=== PATIENT | female | born 1945 | race Caucasian/White ===

== ENCOUNTER 2017-11-09 12:50 | Emergency (ER) | payer OTHER ==
[2017-11-09 14:04] LABS: BASO # 0.1 10^3/uL (0.0-0.2); BASO % 0.5 % (0.0-1.0); EOS # 0.1 10^3/uL (0.0-0.50); EOS % 0.9 % (0.0-3.0); HEMOGLOBIN 10.3 g/dl (12.0-16.0); IMMATURE GRANULOCYTE # 0.1 10^3/uL (0-0); IMMATURE GRANULOCYTE % 0.5 % (0-0); LYMPH # 1.3 10^3/uL (1.5-4.5); LYMPH % 11.9 % (24.0-44.0); MEAN CORPUSCULAR HEMOGLOBIN 24.8 pg (27.0-33.0); MEAN CORPUSCULAR HGB CONC 30.3 g/dl (32.0-36.5); MEAN CORPUSCULAR VOLUME 81.9 fl (80.0-96.0); MONO # 0.6 10^3/uL (0.0-0.8); MONO % 5.8 % (0.0-5.0); NEUTROPHILS # 8.8 10^3/uL (1.8-7.7); NEUTROPHILS % 80.4 % (36.0-66.0); PLATELET COUNT, AUTOMATED 328 10^3/uL (150-450); RED BLOOD COUNT 4.15 10^6/uL (4.00-5.40); RED CELL DISTRIBUTION WIDTH 15.8 % (11.5-14.5)
[2017-11-09 14:15] LABS: INR 1.22; PARTIAL THROMBOPLASTIN TIME 33.9 SECONDS (26.8-37.9); PROTHROMBIN TIME 15.6 SECONDS (12.4-14.5)
== END 2017-11-09 15:20 | disposition home or self-care (01) ==
LOC: M ED 12:50
DX: N93.8 Other specified abnormal uterine and vaginal bleeding (principal); R93.8 Abnormal findings on diagnostic imaging of other specified body structures; I25.10 Atherosclerotic heart disease of native coronary artery without angina pectoris; I48.91 Unspecified atrial fibrillation; D64.9 Anemia, unspecified; G43.909 Migraine, unspecified, not intractable, without status migrainosus; N18.6 End stage renal disease; E03.9 Hypothyroidism, unspecified; E66.9 Obesity, unspecified; Z79.899 Other long term (current) drug therapy; Z79.01 Long term (current) use of anticoagulants; Z79.4 Long term (current) use of insulin; Z79.890 Hormone replacement therapy; Z88.5 Allergy status to narcotic agent; Z88.8 Allergy status to other drugs, medicaments and biological substances
CPT/HCPCS: 76856

== ENCOUNTER → 2018-01-26 | Outpatient (REF) | payer OTHER ==
[2018-01-26 14:28] LABS: FERRITIN 10 NG/ML (8-252); IRON (FE) 23 UG/DL (50-170); PERCENT SATURATION 5.5 % (13.2-45.0); TOTAL IRON BINDING CAPACITY 420 UG/DL (250-450)
== END ==
LOC: M LAB REF 13:24
DX: D50.9 Iron deficiency anemia, unspecified (principal)
CPT/HCPCS: 83550

== ENCOUNTER 2018-06-08 11:34 | Outpatient (CLI) | payer OTHER | END 2018-06-08 17:50 | disposition home or self-care (01) | LOC: M OPCLI4 11:34 → M PED 11:54 → M OPCLI4 17:50 | DX: D62 Acute posthemorrhagic anemia (principal); N18.9 Chronic kidney disease, unspecified; E11.22 Type 2 diabetes mellitus with diabetic chronic kidney disease; I11.0 Hypertensive heart disease with heart failure; E66.9 Obesity, unspecified; E03.9 Hypothyroidism, unspecified; E78.5 Hyperlipidemia, unspecified; I50.32 Chronic diastolic (congestive) heart failure; I25.10 Atherosclerotic heart disease of native coronary artery without angina pectoris; G47.30 Sleep apnea, unspecified; I48.91 Unspecified atrial fibrillation; I35.2 Nonrheumatic aortic (valve) stenosis with insufficiency; E21.3 Hyperparathyroidism, unspecified; Z80.8 Family history of malignant neoplasm of other organs or systems; Z88.5 Allergy status to narcotic agent; Z88.8 Allergy status to other drugs, medicaments and biological substances; Z79.4 Long term (current) use of insulin; Z79.899 Other long term (current) drug therapy | CPT/HCPCS: 36430 ==

== ENCOUNTER → 2018-06-21 | Outpatient (CLI) | payer OTHER | LOC: M RAD 13:54 | DX: N83.209 Unspecified ovarian cyst, unspecified side (principal) | CPT/HCPCS: 76856 ==

== ENCOUNTER 2018-06-30 06:01 | Day surgery (SDC) | payer OTHER ==
[~2018-06-30 06:01] MED LIST: LR 1,000 ML IV
[2018-06-30 06:37] LABS: HEMATOCRIT 31.6 % (36.0-47.0); HEMOGLOBIN 9.3 g/dl (12.0-15.5); MEAN CORPUSCULAR HEMOGLOBIN 24.1 pg (27.0-33.0); MEAN CORPUSCULAR HGB CONC 29.4 g/dl (32.0-36.5); MEAN CORPUSCULAR VOLUME 81.9 fl (80.0-96.0); PLATELET COUNT, AUTOMATED 361 10^3/uL (150-450); RED BLOOD COUNT 3.86 10^6/uL (4.00-5.40); RED CELL DISTRIBUTION WIDTH 16.3 % (11.5-14.5); WHITE BLOOD COUNT 14.8 10^3/uL (4.0-10.0)
[2018-06-30 06:57] LABS: BEDSIDE GLUCOSE 103 MG/DL (83-110)
[2018-06-30] MEDS ORDERED: dexameTHASONE 4 MG/ML 1ML VIAL (J1100) As Ordered (07:16)
[2018-06-30] MEDS ORDERED: fentaNYL 100 MCG/2 ML INJECTION (J3010) As Ordered (07:16)
[2018-06-30] MEDS ORDERED: ONDANSETRON 4MG/2ML VIAL (J2405) As Ordered (07:16)
[2018-06-30] MEDS ORDERED: MIDAZOLAM INJ 2 MG/2 ML VIAL (J2250) As Ordered (07:16)
[2018-06-30] MEDS ORDERED: LIDOCAINE 2% INJ 100 MG/5 ML SDV (FOR ANES.) As Ordered (07:16)
[2018-06-30] MEDS ORDERED: PROPOFOL 200 MG/20 ML VIAL As Ordered (07:16)
[2018-06-30] MEDS ORDERED: ROCURONIUM BROMIDE 50 MG/5 ML VIAL As Ordered (08:03)
[2018-06-30] MEDS ORDERED: ePHEDrine SULFATE 25 MG/5 ML(5MG/ML) SYRINGE As Ordered (08:03)
[2018-06-30] MEDS: SILVER NITRATE APPLICATOR As Ordered (08:20)
[2018-06-30 08:50] LABS: BEDSIDE GLUCOSE 120 MG/DL (83-110)
[2018-06-30] MEDS ORDERED: ONDANSETRON 4MG/2ML VIAL (J2405) IV (09:00)
[2018-06-30] MEDS ORDERED: fentaNYL 100 MCG/2 ML INJECTION (J3010) IV (09:00)
[2018-06-30] MEDS ORDERED: LR 1,000 ML IV (09:00)
== END 2018-06-30 10:57 | disposition home or self-care (01) ==
LOC: M SDC 06:01
DX: C54.1 Malignant neoplasm of endometrium (principal); I48.91 Unspecified atrial fibrillation; I10 Essential (primary) hypertension; E78.5 Hyperlipidemia, unspecified; E11.9 Type 2 diabetes mellitus without complications; G47.30 Sleep apnea, unspecified; Z79.02 Long term (current) use of antithrombotics/antiplatelets; Z79.4 Long term (current) use of insulin; E03.9 Hypothyroidism, unspecified; D64.9 Anemia, unspecified; F41.9 Anxiety disorder, unspecified; Z79.899 Other long term (current) drug therapy; N18.9 Chronic kidney disease, unspecified
CPT/HCPCS: 58558

== ENCOUNTER 2018-10-23 16:16 | Inpatient (IN) | payer OTHER ==
[2018-10-23 16:57] LABS: HEMATOCRIT 22.5 % (36.0-47.0); MEAN CORPUSCULAR HEMOGLOBIN 24.7 pg (27.0-33.0); MEAN CORPUSCULAR HGB CONC 30.7 g/dl (32.0-36.5); MEAN CORPUSCULAR VOLUME 80.6 fl (80.0-96.0); PLATELET COUNT, AUTOMATED 283 10^3/uL (150-450); RED BLOOD COUNT 2.79 10^6/uL (4.00-5.40); RED CELL DISTRIBUTION WIDTH 19.9 % (11.5-14.5); WHITE BLOOD COUNT 19.3 10^3/uL (4.0-10.0)
[2018-10-23] MEDS: NS 1,000 ML IV (17:00)
[2018-10-23 17:03] LABS: HEMOGLOBIN 6.9 g/dl (12.0-15.5)
[2018-10-23 17:04] LABS: ALBUMIN 3.2 GM/DL (3.2-5.2); ALKALINE PHOSPHATASE 74 U/L (45-117); ALT/SGPT 19 U/L (12-78); ANION GAP 17 MEQ/L (8-16); AST/SGOT 16 U/L (7-37); BILIRUBIN,TOTAL 0.7 MG/DL (0.2-1.0); BLOOD UREA NITROGEN 84 MG/DL (7-18); CALCIUM LEVEL 8.3 MG/DL (8.8-10.2); CARBON DIOXIDE LEVEL 21 MEQ/L (21-32); CHLORIDE LEVEL 102 MEQ/L (98-107); CREATININE FOR GFR 3.44 MG/DL (0.55-1.30); GLOMERULAR FILTRATION RATE 13.8 (>39); GLUCOSE, FASTING 220 MG/DL (70-100); POTASSIUM SERUM 4.7 MEQ/L (3.5-5.1); SODIUM LEVEL 140 MEQ/L (136-145); TOTAL PROTEIN 6.4 GM/DL (6.4-8.2)
[2018-10-23 17:16] LABS: INR 1.19; PARTIAL THROMBOPLASTIN TIME 23.8 SECONDS (25.4-37.6); PROTHROMBIN TIME 15.3 SECONDS (12.1-14.4)
[2018-10-23 18:03] LABS: IMMEDIATE SPIN CROSSMATCH 1 2
[2018-10-23] MEDS ORDERED: ACETAMINOPHEN TAB 650MG DOSE (2X325MG) PO (19:15)
[2018-10-23 19:20] LABS: CHLAMYDIA DNA AMPLIFICATION NEGATIVE (NEGATIVE); GC DNA AMPLIFICATION NEGATIVE (NEGATIVE)
[2018-10-23] MEDS ORDERED: GLUCAGON FOR INJ 1 MG VIAL (J1610) SC (20:30)
[2018-10-23] MEDS ORDERED: DEXTROSE 50% 50 ML SYRINGE IV (20:30)
[2018-10-23] MEDS ORDERED: GLUCOSE 4 GM CHEW TABLET PO (20:30)
[2018-10-23] MEDS: HumaLOG INSULIN (NovoLOG) PER UNIT SC (21:00)
[2018-10-23] MEDS: ONDANSETRON 4MG/2ML VIAL (J2405) IV (21:52)
[2018-10-23] MEDS: METOPROLOL SUCC *XL* 25MG TAB (TopROL *XL*) PO (22:42)
[2018-10-23] MEDS: SIMVASTATIN 20 MG TAB PO (22:42)
[2018-10-23] MEDS: FEBUXOSTAT 40 MG TABLET (ULORIC) PO (23:08)
[2018-10-24 00:09] LABS: BEDSIDE GLUCOSE 206 MG/DL (83-110)
[2018-10-24 00:49] LABS: HEMATOCRIT 28.3 % (36.0-47.0); MEAN CORPUSCULAR HEMOGLOBIN 26.3 pg (27.0-33.0); MEAN CORPUSCULAR HGB CONC 32.2 g/dl (32.0-36.5); MEAN CORPUSCULAR VOLUME 81.8 fl (80.0-96.0); PLATELET COUNT, AUTOMATED 221 10^3/uL (150-450); RED BLOOD COUNT 3.46 10^6/uL (4.00-5.40); RED CELL DISTRIBUTION WIDTH 17.8 % (11.5-14.5); WHITE BLOOD COUNT 18.5 10^3/uL (4.0-10.0)
[2018-10-24 00:55] LABS: HEMOGLOBIN 9.1 g/dl (12.0-15.5)
[2018-10-24 05:02] LABS: HEMATOCRIT 25.9 % (36.0-47.0); HEMOGLOBIN 8.4 g/dl (12.0-15.5); MEAN CORPUSCULAR HEMOGLOBIN 25.9 pg (27.0-33.0); MEAN CORPUSCULAR HGB CONC 32.4 g/dl (32.0-36.5); MEAN CORPUSCULAR VOLUME 79.9 fl (80.0-96.0); PLATELET COUNT, AUTOMATED 252 10^3/uL (150-450); RED BLOOD COUNT 3.24 10^6/uL (4.00-5.40); RED CELL DISTRIBUTION WIDTH 17.6 % (11.5-14.5); WHITE BLOOD COUNT 19.8 10^3/uL (4.0-10.0)
[2018-10-24 05:22] LABS: ANION GAP 11 MEQ/L (8-16); BLOOD UREA NITROGEN 86 MG/DL (7-18); CARBON DIOXIDE LEVEL 25 MEQ/L (21-32); CHLORIDE LEVEL 104 MEQ/L (98-107); CREATININE FOR GFR 3.51 MG/DL (0.55-1.30); GLOMERULAR FILTRATION RATE 13.5 (>39); GLUCOSE, FASTING 204 MG/DL (70-100); MAGNESIUM LEVEL 1.8 MG/DL (1.8-2.4); SODIUM LEVEL 140 MEQ/L (136-145)
[2018-10-24] MEDS: LEVOTHYROXINE 125MCG TABLET (0.125MG) PO (06:22)
[2018-10-24] MEDS: ONDANSETRON 4MG/2ML VIAL (J2405) IV (08:43)
[2018-10-24] MEDS: HumaLOG INSULIN (NovoLOG) PER UNIT SC ×4 (08:48→20:37)
[2018-10-24 11:32] LABS: BEDSIDE GLUCOSE 250 MG/DL (83-110)
[2018-10-24] MEDS: NS 1,000 ML IV (12:15)
[2018-10-24 12:30] LABS: HEMATOCRIT 22.7 % (36.0-47.0); HEMOGLOBIN 7.5 g/dl (12.0-15.5); MEAN CORPUSCULAR HEMOGLOBIN 26.2 pg (27.0-33.0); MEAN CORPUSCULAR VOLUME 79.4 fl (80.0-96.0); PLATELET COUNT, AUTOMATED 248 10^3/uL (150-450); RED BLOOD COUNT 2.86 10^6/uL (4.00-5.40); WHITE BLOOD COUNT 21.3 10^3/uL (4.0-10.0)
[2018-10-24 15:34] LABS: IMMEDIATE SPIN CROSSMATCH 1 2
[2018-10-24 17:32] LABS: BEDSIDE GLUCOSE 192 MG/DL (83-110)
[2018-10-24] MEDS: MEGESTROL 40 MG TAB PO (18:15)
[2018-10-24 19:41] LABS: HEMOGLOBIN 9.5 g/dl (12.0-15.5); MEAN CORPUSCULAR HEMOGLOBIN 27.3 pg (27.0-33.0); MEAN CORPUSCULAR HGB CONC 32.8 g/dl (32.0-36.5); MEAN CORPUSCULAR VOLUME 83.3 fl (80.0-96.0); PLATELET COUNT, AUTOMATED 213 10^3/uL (150-450); RED BLOOD COUNT 3.48 10^6/uL (4.00-5.40); RED CELL DISTRIBUTION WIDTH 16.7 % (11.5-14.5); WHITE BLOOD COUNT 22.3 10^3/uL (4.0-10.0)
[2018-10-24] MEDS: SIMVASTATIN 20 MG TAB PO (20:36)
[2018-10-24] MEDS: FEBUXOSTAT 40 MG TABLET (ULORIC) PO (20:36)
[2018-10-24] MEDS: METOPROLOL SUCC *XL* 25MG TAB (TopROL *XL*) PO (20:37)
[2018-10-24 20:44] LABS: BEDSIDE GLUCOSE 205 MG/DL (83-110)
[2018-10-24 22:59] LABS: MEAN CORPUSCULAR HEMOGLOBIN 26.9 pg (27.0-33.0); MEAN CORPUSCULAR HGB CONC 32.1 g/dl (32.0-36.5); MEAN CORPUSCULAR VOLUME 83.6 fl (80.0-96.0); PLATELET COUNT, AUTOMATED 225 10^3/uL (150-450); RED BLOOD COUNT 3.35 10^6/uL (4.00-5.40); RED CELL DISTRIBUTION WIDTH 16.7 % (11.5-14.5); WHITE BLOOD COUNT 25.1 10^3/uL (4.0-10.0)
[2018-10-25] MEDS: LEVOTHYROXINE 125MCG TABLET (0.125MG) PO (05:09)
[2018-10-25] MEDS: ONDANSETRON 4MG/2ML VIAL (J2405) IV (06:35)
[2018-10-25 06:44] LABS: HEMATOCRIT 24.6 % (36.0-47.0); HEMOGLOBIN 8.1 g/dl (12.0-15.5); MEAN CORPUSCULAR HEMOGLOBIN 27.7 pg (27.0-33.0); MEAN CORPUSCULAR HGB CONC 32.9 g/dl (32.0-36.5); MEAN CORPUSCULAR VOLUME 84.2 fl (80.0-96.0); PLATELET COUNT, AUTOMATED 217 10^3/uL (150-450); RED BLOOD COUNT 2.92 10^6/uL (4.00-5.40); WHITE BLOOD COUNT 24.3 10^3/uL (4.0-10.0)
[2018-10-25 07:04] LABS: ANION GAP 10 MEQ/L (8-16); BLOOD UREA NITROGEN 89 MG/DL (7-18); CALCIUM LEVEL 7.8 MG/DL (8.8-10.2); CARBON DIOXIDE LEVEL 23 MEQ/L (21-32); CHLORIDE LEVEL 102 MEQ/L (98-107); CREATININE FOR GFR 3.66 MG/DL (0.55-1.30); GLOMERULAR FILTRATION RATE 12.9 (>39); GLUCOSE, FASTING 202 MG/DL (70-100); MAGNESIUM LEVEL 1.9 MG/DL (1.8-2.4); POTASSIUM SERUM 4.9 MEQ/L (3.5-5.1); SODIUM LEVEL 135 MEQ/L (136-145)
[2018-10-25] MEDS: NS 1,000 ML IV (08:52)
[2018-10-25] MEDS: HumaLOG INSULIN (NovoLOG) PER UNIT SC ×4 (08:53→20:55)
[2018-10-25] MEDS: MEGESTROL 40 MG TAB PO ×2 (08:54→20:55)
[2018-10-25 12:11] LABS: BEDSIDE GLUCOSE 244 MG/DL (83-110)
[2018-10-25 12:37] LABS: FERRITIN 24 NG/ML (8-252); IRON (FE) 21 UG/DL (50-170); PERCENT SATURATION 5.6 % (13.2-45.0); TOTAL IRON BINDING CAPACITY 373 UG/DL (250-450)
[2018-10-25 13:49] LABS: REASON FOR REVIEW WBC/LEUKEMIA/BLAST; SLIDE REVIEW Report; SOURCE PERIPHERAL SMEAR
[2018-10-25] MEDS: NYSTATIN 100,000 UNITS/GM TOPICAL PWD 15 GM TOP ×2 (16:48→20:55)
[2018-10-25 17:01] LABS: BEDSIDE GLUCOSE 239 MG/DL (83-110)
[2018-10-25 17:10] LABS: BASO % 0.1 % (0.0-1.0); HEMATOCRIT 19.8 % (36.0-47.0); LYMPH # 2.4 10^3/uL (1.5-4.5); LYMPH % 9.5 % (24.0-44.0); MEAN CORPUSCULAR HEMOGLOBIN 27.7 pg (27.0-33.0); MEAN CORPUSCULAR HGB CONC 33.3 g/dl (32.0-36.5); MEAN CORPUSCULAR VOLUME 83.2 fl (80.0-96.0); MONO # 1.7 10^3/uL (0.0-0.8); MONO % 6.9 % (0.0-5.0); NEUTROPHILS # 20.7 10^3/uL (1.8-7.7); NEUTROPHILS % 82.5 % (36.0-66.0); PLATELET COUNT, AUTOMATED 218 10^3/uL (150-450); RED BLOOD COUNT 2.38 10^6/uL (4.00-5.40); RED CELL DISTRIBUTION WIDTH 16.9 % (11.5-14.5)
[2018-10-25 17:16] LABS: HEMOGLOBIN 6.6 g/dl (12.0-15.5)
[2018-10-25 19:48] LABS: IMMEDIATE SPIN CROSSMATCH 1 2
[2018-10-25] MEDS: METOPROLOL SUCC *XL* 25MG TAB (TopROL *XL*) PO (20:55)
[2018-10-25] MEDS: SIMVASTATIN 20 MG TAB PO (20:55)
[2018-10-25] MEDS: FEBUXOSTAT 40 MG TABLET (ULORIC) PO (20:55)
[2018-10-25 20:57] LABS: BEDSIDE GLUCOSE 207 MG/DL (83-110)
[2018-10-26 03:28] LABS: HEMOGLOBIN 8.7 g/dl (12.0-15.5)
[2018-10-26] MEDS: LEVOTHYROXINE 125MCG TABLET (0.125MG) PO (06:06)
[2018-10-26 06:34] LABS: HEMATOCRIT 26.1 % (36.0-47.0); HEMOGLOBIN 8.8 g/dl (12.0-15.5); MEAN CORPUSCULAR HEMOGLOBIN 28.4 pg (27.0-33.0); MEAN CORPUSCULAR HGB CONC 33.7 g/dl (32.0-36.5); MEAN CORPUSCULAR VOLUME 84.2 fl (80.0-96.0); PLATELET COUNT, AUTOMATED 179 10^3/uL (150-450); RED CELL DISTRIBUTION WIDTH 15.3 % (11.5-14.5); WHITE BLOOD COUNT 20.7 10^3/uL (4.0-10.0)
[2018-10-26 06:58] LABS: ANION GAP 10 MEQ/L (8-16); BLOOD UREA NITROGEN 88 MG/DL (7-18); CALCIUM LEVEL 7.7 MG/DL (8.8-10.2); CARBON DIOXIDE LEVEL 24 MEQ/L (21-32); CHLORIDE LEVEL 102 MEQ/L (98-107); CREATININE FOR GFR 3.36 MG/DL (0.55-1.30); GLOMERULAR FILTRATION RATE 14.2 (>39); GLUCOSE, FASTING 160 MG/DL (70-100); POTASSIUM SERUM 4.1 MEQ/L (3.5-5.1); SODIUM LEVEL 136 MEQ/L (136-145)
[2018-10-26] MEDS: MEGESTROL 40 MG TAB PO ×2 (08:06→20:45)
[2018-10-26] MEDS: HumaLOG INSULIN (NovoLOG) PER UNIT SC ×4 (08:07→20:44)
[2018-10-26] MEDS: NYSTATIN 100,000 UNITS/GM TOPICAL PWD 15 GM TOP ×2 (08:07→20:44)
[2018-10-26 11:31] LABS: BEDSIDE GLUCOSE 179 MG/DL (83-110)
[2018-10-26] MEDS ORDERED: IRON SUCROSE 100MG 5ML VIAL (J1756 PER 1MG) IV (12:00)
[2018-10-26] MEDS: SODIUM CHLORIDE 0.9% INJ 10 ML SYR IV ×2 (14:00→20:43)
[2018-10-26] MEDS: IRON SUCROSE 25 MG in NS 50 ML IV (14:10)
[2018-10-26 14:19] LABS: HEMATOCRIT 25.4 % (36.0-47.0); HEMOGLOBIN 8.7 g/dl (12.0-15.5); MEAN CORPUSCULAR HEMOGLOBIN 29.1 pg (27.0-33.0); MEAN CORPUSCULAR HGB CONC 34.3 g/dl (32.0-36.5); MEAN CORPUSCULAR VOLUME 84.9 fl (80.0-96.0); PLATELET COUNT, AUTOMATED 191 10^3/uL (150-450); RED BLOOD COUNT 2.99 10^6/uL (4.00-5.40); RED CELL DISTRIBUTION WIDTH 15.4 % (11.5-14.5); WHITE BLOOD COUNT 19.7 10^3/uL (4.0-10.0)
[2018-10-26] MEDS: IRON SUCROSE 275 MG in NS 250 ML IV (15:37)
[2018-10-26 17:09] LABS: BEDSIDE GLUCOSE 235 MG/DL (83-110)
[2018-10-26 20:39] LABS: BEDSIDE GLUCOSE 237 MG/DL (83-110)
[2018-10-26] MEDS: METOPROLOL SUCC *XL* 25MG TAB (TopROL *XL*) PO (20:44)
[2018-10-26] MEDS: FEBUXOSTAT 40 MG TABLET (ULORIC) PO (20:45)
[2018-10-26] MEDS: SIMVASTATIN 20 MG TAB PO (20:45)
[2018-10-26 22:33] LABS: BEDSIDE GLUCOSE 240 MG/DL (83-110)
[2018-10-27] MEDS: SODIUM CHLORIDE 0.9% INJ 10 ML SYR IV ×4 (06:12→20:18)
[2018-10-27] MEDS: LEVOTHYROXINE 125MCG TABLET (0.125MG) PO (06:13)
[2018-10-27 06:37] LABS: BASO % 0.2 % (0.0-1.0); EOS # 0.2 10^3/uL (0.0-0.50); HEMATOCRIT 23.9 % (36.0-47.0); LYMPH # 1.9 10^3/uL (1.5-4.5); LYMPH % 11.6 % (24.0-44.0); MEAN CORPUSCULAR HEMOGLOBIN 28.8 pg (27.0-33.0); MEAN CORPUSCULAR HGB CONC 33.5 g/dl (32.0-36.5); MONO # 1.5 10^3/uL (0.0-0.8); MONO % 9.2 % (0.0-5.0); NEUTROPHILS # 12.9 10^3/uL (1.8-7.7); PLATELET COUNT, AUTOMATED 178 10^3/uL (150-450); RED BLOOD COUNT 2.78 10^6/uL (4.00-5.40); WHITE BLOOD COUNT 16.7 10^3/uL (4.0-10.0)
[2018-10-27 06:54] LABS: ANION GAP 11 MEQ/L (8-16); BLOOD UREA NITROGEN 67 MG/DL (7-18); CALCIUM LEVEL 7.6 MG/DL (8.8-10.2); CARBON DIOXIDE LEVEL 24 MEQ/L (21-32); CHLORIDE LEVEL 104 MEQ/L (98-107); CREATININE FOR GFR 2.63 MG/DL (0.55-1.30); GLOMERULAR FILTRATION RATE 18.9 (>39); GLUCOSE, FASTING 162 MG/DL (70-100); MAGNESIUM LEVEL 1.9 MG/DL (1.8-2.4); POTASSIUM SERUM 3.8 MEQ/L (3.5-5.1); SODIUM LEVEL 139 MEQ/L (136-145)
[2018-10-27] MEDS: HumaLOG INSULIN (NovoLOG) PER UNIT SC ×4 (08:35→20:15)
[2018-10-27] MEDS: MEGESTROL 40 MG TAB PO ×2 (08:35→20:15)
[2018-10-27] MEDS: NYSTATIN 100,000 UNITS/GM TOPICAL PWD 15 GM TOP ×2 (08:36→20:16)
[2018-10-27 11:31] LABS: IMMEDIATE SPIN CROSSMATCH 1 1
[2018-10-27 11:45] LABS: BEDSIDE GLUCOSE 189 MG/DL (83-110)
[2018-10-27 16:55] LABS: BEDSIDE GLUCOSE 242 MG/DL (83-110)
[2018-10-27 18:35] LABS: BASO % 0.2 % (0.0-1.0); EOS # 0.1 10^3/uL (0.0-0.50); EOS % 0.8 % (0.0-3.0); HEMATOCRIT 27.5 % (36.0-47.0); HEMOGLOBIN 9.2 g/dl (12.0-15.5); IMMATURE GRANULOCYTE % 0.9 % (0-3.0); LYMPH # 1.7 10^3/uL (1.5-4.5); LYMPH % 10.7 % (24.0-44.0); MEAN CORPUSCULAR HEMOGLOBIN 28.8 pg (27.0-33.0); MEAN CORPUSCULAR HGB CONC 33.5 g/dl (32.0-36.5); MEAN CORPUSCULAR VOLUME 85.9 fl (80.0-96.0); MONO # 1.5 10^3/uL (0.0-0.8); MONO % 9.2 % (0.0-5.0); NEUTROPHILS # 12.4 10^3/uL (1.8-7.7); NEUTROPHILS % 78.2 % (36.0-66.0); PLATELET COUNT, AUTOMATED 189 10^3/uL (150-450); RED CELL DISTRIBUTION WIDTH 15.9 % (11.5-14.5); WHITE BLOOD COUNT 15.9 10^3/uL (4.0-10.0)
[2018-10-27] MEDS: SIMVASTATIN 20 MG TAB PO (20:14)
[2018-10-27] MEDS: METOPROLOL SUCC *XL* 25MG TAB (TopROL *XL*) PO (20:14)
[2018-10-27] MEDS: FEBUXOSTAT 40 MG TABLET (ULORIC) PO (20:15)
[2018-10-27 20:21] LABS: BEDSIDE GLUCOSE 190 MG/DL (83-110)
[2018-10-27] MEDS: LEVEMIR (INSULIN DETEMIR) 1 UNITS/0.01ML SC (22:03)
[2018-10-28] MEDS: APIXABAN 5 MG TAB (ELIQUIS) PO ×2 (01:06→11:11)
[2018-10-28] MEDS: LEVOTHYROXINE 125MCG TABLET (0.125MG) PO (06:08)
[2018-10-28] MEDS: SODIUM CHLORIDE 0.9% INJ 10 ML SYR IV ×3 (06:08→14:00)
[2018-10-28 07:02] LABS: ANION GAP 9 MEQ/L (8-16); BLOOD UREA NITROGEN 52 MG/DL (7-18); CALCIUM LEVEL 7.2 MG/DL (8.8-10.2); CARBON DIOXIDE LEVEL 25 MEQ/L (21-32); CHLORIDE LEVEL 107 MEQ/L (98-107); CREATININE FOR GFR 2.09 MG/DL (0.55-1.30); GLOMERULAR FILTRATION RATE 24.6 (>39); GLUCOSE, FASTING 114 MG/DL (70-100); MAGNESIUM LEVEL 1.7 MG/DL (1.8-2.4); POTASSIUM SERUM 3.9 MEQ/L (3.5-5.1); SODIUM LEVEL 141 MEQ/L (136-145)
[2018-10-28 08:43] LABS: BASO # 0.1 10^3/uL (0.0-0.2); BASO % 0.3 % (0.0-1.0); EOS # 0.4 10^3/uL (0.0-0.50); EOS % 2.3 % (0.0-3.0); HEMATOCRIT 27.3 % (36.0-47.0); IMMATURE GRANULOCYTE % 0.8 % (0-3.0); LYMPH # 2.3 10^3/uL (1.5-4.5); LYMPH % 13.8 % (24.0-44.0); MEAN CORPUSCULAR HEMOGLOBIN 28.8 pg (27.0-33.0); MEAN CORPUSCULAR VOLUME 87.2 fl (80.0-96.0); MONO # 1.4 10^3/uL (0.0-0.8); MONO % 8.5 % (0.0-5.0); NEUTROPHILS # 12.5 10^3/uL (1.8-7.7); NEUTROPHILS % 74.3 % (36.0-66.0); PLATELET COUNT, AUTOMATED 199 10^3/uL (150-450); RED BLOOD COUNT 3.13 10^6/uL (4.00-5.40); RED CELL DISTRIBUTION WIDTH 16.6 % (11.5-14.5); WHITE BLOOD COUNT 16.8 10^3/uL (4.0-10.0)
[2018-10-28] MEDS: MEGESTROL 40 MG TAB PO (10:35)
[2018-10-28] MEDS: NYSTATIN 100,000 UNITS/GM TOPICAL PWD 15 GM TOP (10:36)
[2018-10-28] MEDS: MAG SULF 1GM/100ML (MAG RUN) 1 GM in APPROPRIATE DILUENT 1 EA IV (10:37)
[2018-10-28] MEDS: HumaLOG INSULIN (NovoLOG) PER UNIT SC ×2 (10:48→12:52)
[2018-10-28 11:58] LABS: BEDSIDE GLUCOSE 170 MG/DL (83-110)
== END 2018-10-28 17:28 | disposition home or self-care (01) | DRG 812 ==
LOC: M MSPAV 10-26 21:00 → M ED 16:16 → M ED INP 19:05 → M ICU 21:40
PROC: 30233N1 Transfusion of Nonautologous Red Blood Cells into Peripheral Vein, Percutaneous Approach (ICD-10-PCS; principal; 2018-10-23)
DX: D62 Acute posthemorrhagic anemia (principal); N17.9 Acute kidney failure, unspecified; Z68.41 Body mass index [BMI] 40.0-44.9, adult; N18.4 Chronic kidney disease, stage 4 (severe); I50.32 Chronic diastolic (congestive) heart failure; I13.0 Hypertensive heart and chronic kidney disease with heart failure and stage 1 through stage 4 chronic kidney disease, or unspecified chronic kidney disease; N25.81 Secondary hyperparathyroidism of renal origin; N93.9 Abnormal uterine and vaginal bleeding, unspecified; E66.01 Morbid (severe) obesity due to excess calories; D72.829 Elevated white blood cell count, unspecified; I48.91 Unspecified atrial fibrillation; E78.5 Hyperlipidemia, unspecified; G47.33 Obstructive sleep apnea (adult) (pediatric); E03.9 Hypothyroidism, unspecified; E11.9 Type 2 diabetes mellitus without complications; C54.1 Malignant neoplasm of endometrium; D63.8 Anemia in other chronic diseases classified elsewhere; Z79.899 Other long term (current) drug therapy; Z79.4 Long term (current) use of insulin; Z88.5 Allergy status to narcotic agent; Z88.8 Allergy status to other drugs, medicaments and biological substances; Z79.01 Long term (current) use of anticoagulants; M10.9 Gout, unspecified

== ENCOUNTER → 2019-02-14 | Outpatient (REF) | payer OTHER ==
[~2019-02-14] MED LIST changes: +ACCU1TAB; +ALTEPLASE; +ASPI-1 PO; +ASPI81TA83; +ATEN100T; +CARD8TAB2; +CINA30TA PO; +ELIQ2.5T PO; +ELIQ5TAB PO; +EUCELOT2; +HUMULIN 70/30; +HYDR-3911 PO; +INSUDET SC; +INSUH10VL SC; +INSULADS SC; +LASI40TA; +LEVO100T7; +LEVO125T4 PO; +LEVO25TABR; +LOSA100T50 PO; -LR 1,000 ML IV; +MEGE40TA PO; +METO1TAB32 PO; +METO25TA PO; +NOVO70VL; +NYAM10003 TOP; +NYSTATIN; +PRIL20CA; +PRIL40CA PO; +RENATAB5 PO; +ROCA0.5C PO; +SIMV20TA2; +SIMV40TA2 PO; +SPIR-10 PO; +SYNT150T; +TORS20TA2 PO; +ULOR80TA PO; +VITA200038 PO; +VITAMIN D50000 UNT; +[UNRECOGNIZED DRUG - OTHER]; +iron
== END ==
LOC: M LAB REF 17:46
PROVIDERS: ATTEND Internal Medicine Nephrology
DX: N39.0 Urinary tract infection, site not specified (principal)

== ENCOUNTER → 2019-04-16 | Outpatient (REF) | payer OTHER ==
[~2019-04-16] MED LIST changes: -CINA30TA PO; +CINA30TA4 PO
== END ==
LOC: M LAB REF 19:58
PROVIDERS: ATTEND Obstetrics & Gynecology
DX: C54.1 Malignant neoplasm of endometrium (principal)

== ENCOUNTER 2019-12-06 18:46 | Inpatient (IN) | payer MEDICARE ==
[~2019-12-06] VITALS: Ht 167.6 cm; Wt 139.9 kg
[2019-12-06] MEDS: MEGESTROL 40 MG TAB PO SCH (03:10)
[~2019-12-06 18:46] MED LIST changes: -SIMV40TA2 PO; +SIMV40TA20 PO
[2019-12-06] MEDS: NS 1,000 ML IV SCH (20:30)
[2019-12-06] MEDS ORDERED: LIDOCAINE 2% 5ML JELLY UROJET TOP ONE (20:30)
--- NOTE | 2019-12-06 22:05 | REPVR ---
PROCEDURE INFORMATION: Exam: US Duplex Lower Extremity Veins Exam date and time: 12/06/2019 9:48 PM Age: 74 years old Clinical indication: Pain; Leg, upper and leg, lower; Bilateral; Additional info: C/O pain TECHNIQUE: Imaging protocol: Real-time duplex ultrasound of the Lower Extremities with 2-D ledbetter scale, color Doppler flow and spectral waveform analysis with image documentation. Complete exam focused on the bilateral lower extremity veins. COMPARISON: No relevant prior studies available. FINDINGS: Right deep veins: Unremarkable. The common femoral, femoral, proximal profunda femoral and popliteal veins are patent without thrombus. Normal Doppler waveforms. Normal compressibility and/or augmentation response. Right superficial veins: Saphenofemoral junction is patent without thrombus. Left deep veins: Unremarkable. The common femoral, femoral, proximal profunda femoral and popliteal veins are patent without thrombus. Normal Doppler waveforms. Normal compressibility and/or augmentation response. Left superficial veins: Saphenofemoral junction is patent without thrombus. Soft tissues: Edema in bilateral lower extremities. IMPRESSION: No DVT of bilateral lower extremities. Electronically signed by: Kasi Parks On 12/06/2019 22:04:36 PM
[2019-12-06 22:46] LABS: BASO % 0.2 % (0.0-1.0); HEMATOCRIT 37.7 % (36.0-47.0); HEMOGLOBIN 10.6 g/dl (12.0-15.5); LYMPH # 0.8 10^3/uL (1.5-5.0); LYMPH % 5.8 % (24.0-44.0); MEAN CORPUSCULAR HEMOGLOBIN 22.1 pg (27.0-33.0); MEAN CORPUSCULAR HGB CONC 28.1 g/dl (32.0-36.5); MEAN CORPUSCULAR VOLUME 78.7 fl (80.0-96.0); MONO # 0.9 10^3/uL (0.0-0.8); MONO % 6.8 % (0.0-5.0); NEUTROPHILS % 86.1 % (36.0-66.0); PLATELET COUNT, AUTOMATED 272 10^3/uL (150-450); RED BLOOD COUNT 4.79 10^6/uL (4.00-5.40); WHITE BLOOD COUNT 13.9 10^3/uL (4.0-10.0)
[2019-12-06 22:58] LABS: INR 1.77; PROTHROMBIN TIME 20.4 SECONDS (11.8-14.0)
[2019-12-06 23:21] LABS: ALBUMIN 3.2 GM/DL (3.2-5.2); ALT/SGPT 26 U/L (12-78); BILIRUBIN,DIRECT 0.5 MG/DL (0.0-0.2); BILIRUBIN,TOTAL 1.5 MG/DL (0.2-1.0); BLOOD UREA NITROGEN 45 MG/DL (7-18); CALCIUM LEVEL 9.1 MG/DL (8.8-10.2); CARBON DIOXIDE LEVEL 31 MEQ/L (21-32); CHLORIDE LEVEL 104 MEQ/L (98-107); CK-MB VALUE MASS 2.4 NG/ML (<3.6); CPK CREATINE PHOSPHOKINASE 109 U/L (26-192); CREATININE FOR GFR 1.75 MG/DL (0.55-1.30); GLOMERULAR FILTRATION RATE 30.1 (>39); GLUCOSE, FASTING 162 MG/DL (70-100); LIPASE 50 U/L (73-393); POTASSIUM SERUM 3.8 MEQ/L (3.5-5.1); SODIUM LEVEL 141 MEQ/L (136-145); TROPONIN I < 0.02 NG/ML (< 0.10)
[2019-12-06] MEDS ORDERED: cefTRIAXone SOD 1 GM in D5W MINI-BAG PLUS 50 ML IV ONE (23:30)
--- NOTE | 2019-12-06 23:50 | HPEPDOC ---
[facility] Medical History & Physical Date of Admission Dec 06, 2019 Date of Service: Dec 06, 2019 Attending Physician: JASWINDER SCHWARTZ MD History and Physical CHIEF COMPLAINT: Weakness, B/L LE pain HISTORY OF PRESENT ILLNESS: is a 74-year-old female with history of insulin-dependent type 2 diabetes, chronic kidney disease, atrial fibrillation on Eliquis, hypertension, hyperlipidemia, chronic anemia, endometrial cancer, and hypothyroidism who presented to the emergency department via EMS for weakness and bilateral lower extremity pain. Pain on the right lower extremity extends from the hip distally to the ankle, is 10/10, throbbing, and constant. Pain on the left lower extremity extends from the hip distally to the knee, is 7/10, throbbing, and constant. Her pain arose this morning, becoming more intense as the day progressed until it reached a point that she and her friend/media senior recruiter called 911. She reports history of intermittent lower extremity pain, but not this intense before. Patient has baseline limited ambulation, even with the assistance of cane or walker. She has generalized weakness at baseline and experienced a fall last week. In the ED, she was found to have asymptomatic simple cystitis/uncomplicated UTI, anemia, and leukocytosis. One time dose of ceftriaxone was given, as was influenza vaccination. Duplex bilateral lower extremity ultrasound showed edema but no DVT. REVIEW OF SYSTEMS: CONSTITUTIONAL: Denies fever, chills, night sweats. CARDIOVASCULAR: Denies chest pain or palpitations. RESPIRATORY: Denies shortness of breath. GASTROINTESTINAL:. Denies nausea, vomiting, or abdominal pain. GENITOURINARY: Endorses vaginal itching; Denies dysuria or hematuria. MUSCULOSKELETAL: Endorses bilateral lower extremity pain, right greater than left NEUROLOGICAL: Denies headache, feeling lightheaded, syncope. HEMATOLOGIC/LYMPHATIC: Endorses easy bruising (is on Eliquis). PAST MEDICAL / SURGICAL HISTORY: Insulin-dependent diabetes mellitus type 1 Chronic kidney disease Atrial fibrillation, on Eliquis History of endometrial cancer, diagnosed 06/2018 Chronic anemia Hyperlipidemia Hypothyroidism Chronic Hypertension s/p Dilation and curettage. Permacath for hemodialysis at one point. Surgical excision of lipoma ALLERGIES: Please see below. HOME MEDICATIONS: Please see below. PHYSICAL EXAMINATION: VITAL SIGNS: Please see below GENERAL APPEARANCE: Pleasant and interactive, morbidly obese female lying comfortably in bed. Alert and oriented 3. In no apparent acute distress of any kind. Malodorous. HEENT: Normocephalic, atraumatic. Aniscoria, left pupil more constricted compared to right. Anicteric and noninjected sclera. Trachea is midline. CARDIOVASCULAR: Tachycardic rate with irregularly irregular rhythm. LUNGS: Clear to auscultation anteriorly. Due to habitus and deconditioning did not auscultate posteriorly. Diminished tidal volume. Breathing on room air. ABDOMEN: Obese, soft. Nontender in all 4 quadrants. Area of bruising in the r ight lower quadrant. MUSCULOSKELETAL: 5/5 upper extremity strength bilaterally. Unable to lift either lower extremity off the bed with no applied resistance. EXTREMITIES: 3+ pitting edema bilateral lower extremities with rubor, skin breakdown and ulceration. Left calf tenderness. NEUROLOGICAL: Awake, alert and oriented 3.. PSYCHIATRIC: Mood and affect appear appropriate. LABORATORY DATA: Please see below. IMAGING: Duplex lower extremity ultrasound, 12/06/19: No DVT of bilateral lower extremities. Portable CXR, 12/06/19: Mild stable cardiomegaly and diffuse chronic changes are again appreciated. No definite acute consolidation. No obvious effusion. No pneumothorax. Skeletal structures are stable. MICROBIOLOGY: Please see below. ASSESSMENT & PLAN: This is a 74-year-old morbidly obese female with history of insulin-dependent DM II, A fib on Eliquis, chronic kidney disease 2, chronic hypertension, HLD, hypothyroidism, chronic anemia, and endometrial cancer who was admitted for evaluation of weakness. #Weakness -Pt is morbidly obese with significant deconditioning and [id number] mobility and was subsequently not safe for d/c home from ED -Pt lives alone and lacks qualified providers to assist in self care and ADLs -PT and PFS consultations ordered with aim for optimal placement upon d/c -2 blood cultures and urine culture pending with WBC 13.9 #Asymptomatic simple cystitis -UA: positive leuk esterase and urine bacteria -urine culture pending -Initial CBC showed WBC of 13.9 -Pt denied dysuria, is afebrile, and had no CVA, suprapubic, or lower back tenderness -one-time rocephin dose was given in ED, but due to lack of symptoms and no signs of complication, further ABx were not ordered -IVF ordered #CKD 2 -GFR 30.1% and Cr 1.75 in ED -Baseline Cr appears to be around 2 -Follows as outpatient with Dr. Mckeon -IVF ordered -home torsemide continued #Insulin-dependent DMII -ISS ordered ac and hs w/ hypoglycemic protocol -FSBS ac and hs -equivalent long-acting home insulin continued -2g Na diet #HLD -home statin continued #Hypothyroidism -c/w home synthroid #Atrial fibrillation -home eliquis and metoprolol succinate continued -rate controlled thus far since presenting to ED #Chronic HTN -home torsemide, metoprolol succinate, and eliquis continued #Microcytic Hypochromic Anemia -Initial Hgb 10.6, which appears to be around baseline -Pt has h/o anemia with vaginal bleeding and dx of endometrial CA in Jun 2018 -UA showed urine rbc tntc #Morbid obesity, Class III -BMI 49.8 -this complicates care -she has co-existing DM -she can f/u w her PCP for STOP[employer]ANG questionnaire and aerial photographer consult #DVT prophylaxis: Home Eliquis continued DISPOSITION: Proper placement pending evaluation by physical therapy and social work. Vital Signs Vital Signs Date Time Temp Pulse Resp B/P (MAP) Pulse Ox O2 Delivery O2 Flow Rate FiO2 12/06/19 19:00 97.4 92 18 138/79 95 Room Air Laboratory Data Labs 24H Laboratory Tests 2 12/06/19 22:32: Immature Granulocyte % (Auto) 1.1, Neutrophils (%) (Auto) 86.1H, Lymphocytes (%) (Auto) 5.8L, Monocytes (%) (Auto) 6.8H, Eosinophils (%) (Auto) 0.0, Basophils (%) (Auto) 0.2, Neutrophils # (Auto) 12.0H, Lymphocytes # (Auto) 0.8L, Monocytes # (Auto) 0.9H, Eosinophils # (Auto) 0.0, Basophils # (Auto) 0.0, Nucleated Red Blood Cells % (auto) 0.2H, Prothrombin Time 20.4H, Prothromb Time International Ratio 1.77, Anion Gap 6L, Glomerular Filtration Rate 30.1L, Calcium Level 9.1, Total Bilirubin 1.5H, Direct Bilirubin 0.5H, Aspartate Amino Transf (AST/SGOT) 18, Alanine Aminotransferase (ALT/SGPT) 26, Alkaline Phosphatase 83, Total Creatine Kinase 109, Creatine Kinase MB 2.4, Creatine Kinase MB Relative Index 2.20, Troponin I < 0.02, Total Protein 7.0, Albumin 3.2, Albumin/Globulin Ratio 0.84L, Lipase 50L 12/06/19 22:52: Urine Color YELLOW, Urine Appearance CLOUDYH, Urine pH 6.0, Urine Specific [place] 1.017, Urine Protein 2+H, Urine Glucose (UA) NEGATIVE, Urine Ketones NEGATIVE, Urine Blood 3+H, Urine Nitrite NEGATIVE, Urine Bilirubin NEGATIVE, Urine Urobilinogen 0.2, Urine Leukocyte Esterase 2+H, Urine WBC (Auto) 94H, Urine RBC (Auto) TNTCH, Urine Hyaline Casts (Auto) 0, Urine Bacteria (Auto) 3+H, Urine Squamous Epithelial Cells 6, Urine Mucus (Auto) SMALL, Urine Sperm (Auto) CBC/BMP Laboratory Tests 12/06/19 22:32 Microbiology Microbiology 12/06/19 Urine Culture, Received Pending 12/06/19 Blood Culture, Received Pending 12/06/19 Blood Culture, Received Pending Home Medications Scheduled Apixaban (Eliquis) 5 Mg Tab, 5 MG PO BID Calcitriol (Rocaltrol) 0.5 Mcg Cap, 0.5 MCG PO 2XW TUESDAYS/THURSDAYS AT BEDTIME Cholecalciferol (Vitamin D3) (Vitamin D3) 2,000 Unit Tab, 2,000 UNIT PO QHS Cinacalcet (Sensipar) 30 Mg Tab, 30 MG PO 1XWK FRIDAYS Febuxostat (Febuxostat) 40 Mg Tablet, 40 MG PO QHS Folic Acid/Vit B Complex and C (Julisa-Jaylyn Tablet) 1 Tab Tab, 1 TAB PO DAILY Insulin Glargine (Lantus) 100 Unit/Ml Inj, 8 UNITS SC QHS Insulin Human Lispro (Novolog) 100 U/Ml Inj, 1 DOSE SC AC PER SLIDING SCALE Levothyroxine Sodium (Levothyroxine Sodium) 125 Mcg Tab, 125 MCG PO DAILY Megestrol Acetate (Megestrol Acetate) 40 Mg Tablet, 160 MG PO BID Metoprolol Succinate (Toprol Xl) 50 Mg Tab.er.24h, 50 MG PO QHS Simvastatin (Simvastatin) 40 Mg Tab, 20 MG PO QHS Torsemide (Torsemide) 20 Mg Tab, 40 MG PO DAILY Scheduled PRN Nystatin (Nystatin Powder) 15 Gm Powder, 1 DOSE TOP BID PRN for RASH PLACES UNDER STOMACH FOLDS Allergies Coded Allergies: atorvastatin (Verified Adverse Reaction, Intermediate, cramps, 12/06/19) cramps morphine (Verified Adverse Reaction, Intermediate, HALLUCINATIONS, 12/06/19) hallucinations A-FIB/CHADSVASC A-FIB History Current/History of A-Fib/PAF?: Yes Current PO Anticoag Therapy: Yes (Eliquis) GME ATTESTATION GME ATTESTATION My faculty preceptor for this patient encounter was physically present during the encounter and was fully available. All aspects of the patient interview, exa mination, medical decision making process, and medical care plan development were reviewed and approved by the faculty preceptor. The faculty preceptor is aware and concurs with the plan as stated in the body of this note and will attest to such by his/her cosignature. ATTENDING NOTE TIME OF SERVICE; December 06 at 11:45 PM. Ms. Ruiz is a 74 yr old F w a PMH of DM2, CKD, A fib, HTN, Dyslpidemia, Anemia and Hypothyroidism who presented w c/o ankle weakness; she last walked 3 days ago. f /u PT and PFS for possible temporary placement for rehab. She is asymptomatic w regards to the UTI. HUMBLE HERZOG D.O. Dec 06, 2019 23:50 JASWINDER SCHWARTZ MD Dec 07, 2019 00:12
[2019-12-07] MEDS ORDERED: NYST1POW9 TOP (00:18)
[2019-12-07] MEDS ORDERED: MEGE40TA PO (00:18)
[2019-12-07] MEDS ORDERED: TOPR50TA PO (00:18)
[2019-12-07] MEDS ORDERED: FEBU40TA2 PO (00:18)
--- NOTE | 2019-12-07 01:02 | REP ---
Clinical: Fever and chest pain . Comparison: 10/25/2018 . Technique: Portable semiupright AP view Findings: Mild stable cardiomegaly and diffuse chronic changes are again appreciated. No definite acute consolidation. No obvious effusion. No pneumothorax. Skeletal structures are stable. Impression: 1. Chronic-appearing changes. No obvious acute process. Electronically Signed by Edward Low MD 12/07/2019 12:55 A
[2019-12-07 01:32] VITALS: BP 145/85
[2019-12-07] MEDS ORDERED: GLUCOSE 4 GM CHEW TABLET PO PRN (01:45)
[2019-12-07] MEDS ORDERED: GLUCAGON FOR INJ 1 MG VIAL (J1610) SC PRN (01:45)
[2019-12-07] MEDS ORDERED: DEXTROSE 50% 50 ML SYRINGE IV PRN (01:45)
[2019-12-07] MEDS: VITAMIN D 1,000 INTERNATIONAL UNITS TABLET PO SCH ×2 (02:11→22:12)
[2019-12-07] MEDS: CALCITRIOL 0.25 MCG CAP (S0169) PO SCH (02:11)
[2019-12-07] MEDS: SIMVASTATIN 20 MG TAB PO SCH ×2 (02:12→22:12)
[2019-12-07] MEDS: METOPROLOL SUCC (TopROL XL) 50MG **XL** TAB PO SCH ×2 (02:12→22:12)
[2019-12-07] MEDS: FEBUXOSTAT 40 MG TABLET (ULORIC) PO SCH ×2 (02:12→22:12)
[2019-12-07] MEDS: APIXABAN 5 MG TAB (ELIQUIS) PO SCH ×3 (02:13→22:11)
[2019-12-07 06:00] VITALS: BP 141/77
[2019-12-07] MEDS: LEVOTHYROXINE 125MCG TABLET (0.125MG) PO SCH (06:14)
[2019-12-07 06:17] LABS: HEMATOCRIT 35.1 % (36.0-47.0); HEMOGLOBIN 10.4 g/dl (12.0-15.5); MEAN CORPUSCULAR HEMOGLOBIN 23.2 pg (27.0-33.0); MEAN CORPUSCULAR HGB CONC 29.6 g/dl (32.0-36.5); MEAN CORPUSCULAR VOLUME 78.2 fl (80.0-96.0); PLATELET COUNT, AUTOMATED 249 10^3/uL (150-450); RED BLOOD COUNT 4.49 10^6/uL (4.00-5.40); WHITE BLOOD COUNT 13.1 10^3/uL (4.0-10.0)
[2019-12-07 06:45] LABS: CALCIUM LEVEL 8.8 MG/DL (8.8-10.2); CREATININE FOR GFR 1.59 MG/DL (0.55-1.30); GLOMERULAR FILTRATION RATE 33.6 (>39); POTASSIUM SERUM 3.9 MEQ/L (3.5-5.1)
[2019-12-07] MEDS: CINACALCET 30 MG TAB (SENSIPAR) PO SCH (09:55)
[2019-12-07] MEDS: MEGESTROL 40 MG TAB PO SCH ×2 (09:55→22:12)
[2019-12-07] MEDS: HumaLOG INSULIN (NovoLOG) PER UNIT SC SCH ×3 (09:56→17:48)
[2019-12-07] MEDS: TORSEMIDE 20 MG TAB PO SCH (09:56)
[2019-12-07] MEDS: NS 1,000 ML IV SCH (09:57)
[2019-12-07] MEDS: ACETAMINOPHEN TAB 650MG DOSE (2X325MG) PO PRN ×2 (10:13→22:14)
--- NOTE | 2019-12-07 13:02 | IPNPDOC ---
Text Note Date of Service The patient was seen on 12/07/19. NOTE Subjective: Patient is a 74-year-old female with a PMHx of HTN, A. fib (on Eliquis), DLP, NIDDM2, Hypothyroidism, CKD3, Chronic anemia, Endometrial CA , who presented to the emergency room with complaints of weakness of her lower extremities. . She reported that she was at home and had difficulty getting up out of a seated position. Patient was brought to the emergency room for further evaluation. Lab work had revealed some level of leukocytosis and an abnormal urinalysis. Patient was admitted to hospitalist service for further evaluation and treatment. Patient was seen and examined at the bedside. Currently patient denies any lightheadedness, dizziness, chest pain, shortness of breath, palpitations, cough, abdominal pain, constipation or diarrhea. She does note urinary incontinence. She is reported that her urine does have a foul odor. Objective: Vitals (See below) General: Lying in bed, no acute distress, comfortable, AAOx3 HEENT: NC, AT CVS: RRR, +S1S2 Lungs: Fair air entry b/l, no appreciable wheezing, rhonchi or rales Abdomen: Soft, ND, NT Extremities: Chronic lymphedema - mild erythema noted; - Calf tenderness Neuro: 4/5 strength of bilateral LE, 5/5 strength at upper extremities Assessment and plan: Weakness - possibly 2/2 infectious etiology 2/2 UTI, possibly 2/2 deconditioning - Presented to the emergency room after she had difficulty getting up from a seated position - Patient lives alone and does not have any assistance - Patient remains hemodynamically stable and afebrile - Leukocytosis appreciated. No lactic acidosis - UA noted to have 2+ leukocyte esterase, 3+ bacteria - Urine cultures and blood cultures are pending - s/p Ceftriaxone in the ER; will resume Ceftriaxone now (Day #2) - Will continue with physical therapy and occupational therapy - Discussed with the patient the potential for MRI and potential requirement for neurosurgery if it had normal MRI is found. At this point. She has reported that she does not want to pursue surgery. Has been advised before, that she is a poor surgical candidate because of her "leaky valves." Has indicated that her primary care does not want her to receive any surgeries; patient is aware or risks and has verbalized this CKD - Patient's baseline creatinine appears to run between 1.6 and 1.8 - Creatinine on admission of 1.7 - Will discontinue IV fluid hydration Atrial fibrillation -c/w rate control with metoprolol succinate -c/w full anticoagulation with Eliquis HTN - BP is well controlled - c/w Metoprolol, Torsemide IDDM2 - c/w ISS and Levemir DLP - c/w Simvastatin Hypothyroidism - c/w Levothyroxine Microcytic Hypochromic Anemia -Initial Hgb 10.6, which appears to be around baseline -Pt has h/o anemia with vaginal bleeding and dx of endometrial CA in Jun 2018 -UA showed urine rbc tntc Morbid obesity - Class III - BMI 49.8 - Complicating medical care DVT prophylaxis - c/w full anticoagulation with Eliquis Disposition: - Patient will work with physical therapy and occupational therapy today VS,Maryjane, I+O VS, Maryjane, I+O Laboratory Tests 12/06/19 22:32 12/07/19 06:00 Vital Signs Date Time Temp Pulse Resp B/P (MAP) Pulse Ox O2 Delivery O2 Flow Rate FiO2 12/07/19 06:00 97.0 96 16 141/77 (98) 93 Room Air DARCY HANEY MD Dec 07, 2019 13:02
--- NOTE | 2019-12-07 13:26 | ECGEPIP ---
[facility] - ED Test Date: 2019-12-06 Pat Name: CRISS SHORT Department: Room: [place] [address] Gender: Female Mind Reader: kell : 1945 Requested By: HAYDER MERCADO Order Number: [id number] Reading MD: Felipa Evans Measurements Intervals [place] Rate: 85 P: MN: 0 QRS: -50 QRSD: 122 T: 29 QT: 367 QTc: 437 Interpretive Statements ATRIAL FIBRILLATION WITH ABERRANT CONDUCTION OR VENTRICULAR PREMATURE COMPLEXES LEFT ANTERIOR FASCICULAR BLOCK SIMILAR 06/30/18 Electronically Signed on 12-07-2019 13:25:36 EST by Felipa Evans
[2019-12-07 14:00] VITALS: BP 118/65
[2019-12-07] MEDS ORDERED: cefTRIAXone SOD 1 GM in D5W MINI-BAG PLUS 50 ML IV SCH (21:00)
[2019-12-07 22:00] VITALS: BP 119/62
[2019-12-07] MEDS: LEVEMIR (INSULIN DETEMIR) 1 UNITS/0.01ML SC SCH (22:13)
[2019-12-08] MEDS: NYSTATIN 100,000 UNITS/GM TOPICAL PWD 15 GM TOP PRN ×2 (01:57→21:57)
[2019-12-08] MEDS: LEVOTHYROXINE 125MCG TABLET (0.125MG) PO SCH (05:34)
[2019-12-08] MEDS: ACETAMINOPHEN TAB 650MG DOSE (2X325MG) PO PRN ×3 (05:35→22:27)
[2019-12-08 06:00] VITALS: BP 150/71
[2019-12-08 07:30] LABS: BASO # 0.1 10^3/uL (0.0-0.2); BASO % 0.5 % (0.0-1.0); EOS # 0.1 10^3/uL (0.0-0.5); EOS % 1.1 % (0.0-3.0); HEMOGLOBIN 10.2 g/dl (12.0-15.5); LYMPH # 1.5 10^3/uL (1.5-5.0); LYMPH % 11.2 % (24.0-44.0); MEAN CORPUSCULAR HEMOGLOBIN 22.9 pg (27.0-33.0); MEAN CORPUSCULAR HGB CONC 28.3 g/dl (32.0-36.5); MEAN CORPUSCULAR VOLUME 80.7 fl (80.0-96.0); MONO # 1.2 10^3/uL (0.0-0.8); MONO % 9.1 % (0.0-5.0); NEUTROPHILS # 10.1 10^3/uL (1.5-8.5); PLATELET COUNT, AUTOMATED 260 10^3/uL (150-450); RED BLOOD COUNT 4.46 10^6/uL (4.00-5.40); WHITE BLOOD COUNT 13.1 10^3/uL (4.0-10.0)
[2019-12-08 08:09] LABS: CALCIUM LEVEL 8.1 MG/DL (8.8-10.2); CREATININE FOR GFR 1.84 MG/DL (0.55-1.30); GLOMERULAR FILTRATION RATE 28.4 (>39); MAGNESIUM LEVEL 1.8 MG/DL (1.8-2.4)
[2019-12-08] MEDS: HumaLOG INSULIN (NovoLOG) PER UNIT SC SCH ×3 (08:37→17:27)
[2019-12-08] MEDS: APIXABAN 5 MG TAB (ELIQUIS) PO SCH ×2 (08:37→21:55)
[2019-12-08] MEDS: MEGESTROL 40 MG TAB PO SCH ×2 (08:38→21:55)
[2019-12-08] MEDS: TORSEMIDE 20 MG TAB PO SCH (08:38)
[2019-12-08] MEDS ORDERED: FLUBLOK(EGG FREE)(QUAD)INFLUENZA VACC 0.5ML SYRINGE (90682)18YRS&OLDER IM ONE (09:00)
--- NOTE | 2019-12-08 11:12 | IPNPDOC ---
Text Note Date of Service The patient was seen on 12/08/19. NOTE Subjective: Patient is a 74-year-old female with a PMHx of HTN, A. fib (on Eliquis), DLP, NIDDM2, Hypothyroidism, CKD3, Chronic anemia, Endometrial CA , w ho presented to the emergency room with complaints of weakness of her lower extremities. . She reported that she was at home and had difficulty getting up out of a seated position. Patient was brought to the emergency room for further evaluation. Lab work had revealed some level of leukocytosis and an abnormal urinalysis. Patient was admitted to hospitalist service for further evaluation and treatment. Patient was seen and examined at the bedside. Currently, she reports that her lower extremity strength has improved. Denies chest pain, shortness of breath, palpitations. Denies nausea, vomiting, abdominal pain, constipation or diarrhea. She denies any foul odor of her urine. Objective: Vitals (See below) General: Lying in bed, no acute distress, comfortable, AAOx3 HEENT: NC, AT CVS: RRR, +S1S2 Lungs: Air entry is fair bilaterally without evidence of rhonchi, rales or wheezes Abdomen: Remains soft without distention or tenderness. Morbid obesity Extremities: Chronic lymphedema - mild erythema noted bilaterally; - Calf tenderness Neuro: 4/5 strength of bilateral LE, 5/5 strength at upper extremities Assessment and plan: Weakness - possibly 2/2 infectious etiology 2/2 UTI, possibly 2/2 deconditioning 2/2 old age debility - Presented to the emergency room after she had difficulty getting up from a seated position - Patient lives alone and does not have any assistance - Patient remains hemodynamically stable and afebrile - Leukocytosis appreciated - mild improvement; No lactic acidosis - UA noted to have 2+ leukocyte esterase, 3+ bacteria - Urine cultures pending; Blood cultures negative at 24 hours - Will start Doxycycline; s/p Ceftriaxone (Antibiotic day #3) - c/w Wound care - c/w PT and OT CKD - Patient's baseline creatinine appears to run between 1.6 and 1.8 - Creatinine on admission of 1.7 - s/p IV fluid hydration Atrial fibrillation -c/w rate control with metoprolol succinate -c/w full anticoagulation with Eliquis HTN - BP is well controlled - c/w Metoprolol, Torsemide IDDM2 - c/w ISS and Levemir DLP - c/w Simvastatin Hypothyroidism - c/w Levothyroxine Microcytic Anemia - Hg remains stable - No evidence of bleeding Morbid obesity - Class III - BMI 49.8 - Complicating medical care DVT prophylaxis - c/w full anticoagulation with Eliquis Disposition: - Patient will work with physical therapy and occupational therapy today - Will c/w wound care / Doxycycline VS,Fishbone, I+O VS, Fishbone, I+O Laboratory Tests 12/08/19 07:14 Vital Signs Date Time Temp Pulse Resp B/P (MAP) Pulse Ox O2 Delivery O2 Flow Rate FiO2 12/08/19 06:00 98.8 84 17 150/71 (97) 93 Room Air I&O- Last 24 Hours up to 6 AM0 12/08/19 05:59 Intake Total 2460 ml Output Total 0 ml Balance 2460 ml DARCY HANEY MD Dec 08, 2019 11:12
[2019-12-08] MEDS: DOXYCYCLINE HYCLATE 100 MG TAB PO SCH ×2 (12:00→21:56)
[2019-12-08] MEDS: VANICREAM MOISTURIZING SKIN CREAM 113GM TUBE TOP SCH ×2 (12:01→21:57)
[2019-12-08 14:00] VITALS: BP 140/60
[2019-12-08] MEDS: SIMVASTATIN 20 MG TAB PO SCH (21:56)
[2019-12-08] MEDS: METOPROLOL SUCC (TopROL XL) 50MG **XL** TAB PO SCH (21:56)
[2019-12-08] MEDS: FEBUXOSTAT 40 MG TABLET (ULORIC) PO SCH (21:56)
[2019-12-08] MEDS: VITAMIN D 1,000 INTERNATIONAL UNITS TABLET PO SCH (21:56)
[2019-12-08] MEDS: LEVEMIR (INSULIN DETEMIR) 1 UNITS/0.01ML SC SCH (21:57)
[2019-12-08 22:00] VITALS: BP 149/74
[2019-12-09 06:00] VITALS: BP 145/76
[2019-12-09] MEDS: LEVOTHYROXINE 125MCG TABLET (0.125MG) PO SCH (06:25)
[2019-12-09] MEDS: ACETAMINOPHEN TAB 650MG DOSE (2X325MG) PO PRN ×2 (06:26→18:18)
[2019-12-09 07:50] LABS: BASO # 0.1 10^3/uL (0.0-0.2); BASO % 0.5 % (0.0-1.0); EOS # 0.2 10^3/uL (0.0-0.5); EOS % 1.9 % (0.0-3.0); HEMATOCRIT 35.2 % (36.0-47.0); HEMOGLOBIN 10.3 g/dl (12.0-15.5); LYMPH # 1.5 10^3/uL (1.5-5.0); LYMPH % 12.1 % (24.0-44.0); MEAN CORPUSCULAR HEMOGLOBIN 22.9 pg (27.0-33.0); MEAN CORPUSCULAR HGB CONC 29.3 g/dl (32.0-36.5); MEAN CORPUSCULAR VOLUME 78.2 fl (80.0-96.0); MONO # 0.9 10^3/uL (0.0-0.8); MONO % 7.3 % (0.0-5.0); NEUTROPHILS # 9.6 10^3/uL (1.5-8.5); NEUTROPHILS % 77.1 % (36.0-66.0); PLATELET COUNT, AUTOMATED 265 10^3/uL (150-450); WHITE BLOOD COUNT 12.4 10^3/uL (4.0-10.0)
[2019-12-09 08:21] LABS: CALCIUM LEVEL 7.9 MG/DL (8.8-10.2); CREATININE FOR GFR 1.79 MG/DL (0.55-1.30); GLOMERULAR FILTRATION RATE 29.3 (>39); MAGNESIUM LEVEL 1.6 MG/DL (1.8-2.4); POTASSIUM SERUM 3.9 MEQ/L (3.5-5.1)
[2019-12-09] MEDS: TORSEMIDE 20 MG TAB PO SCH (09:54)
[2019-12-09] MEDS: DOXYCYCLINE HYCLATE 100 MG TAB PO SCH ×2 (09:54→21:23)
[2019-12-09] MEDS: APIXABAN 5 MG TAB (ELIQUIS) PO SCH ×2 (09:54→21:23)
[2019-12-09] MEDS: MEGESTROL 40 MG TAB PO SCH ×2 (09:55→21:23)
[2019-12-09] MEDS: VANICREAM MOISTURIZING SKIN CREAM 113GM TUBE TOP SCH ×2 (09:56→21:26)
[2019-12-09] MEDS ORDERED: MAG SULF 1GM/100ML (MAG RUN) 1 GM in IV 1 EA IV ONE (10:00)
[2019-12-09] MEDS: HumaLOG INSULIN (NovoLOG) PER UNIT SC SCH ×4 (10:01→21:24)
--- NOTE | 2019-12-09 12:30 | IPNPDOC ---
Text Note Date of Service The patient was seen on 12/09/19. NOTE Subjective: Patient is a 74-year-old female with a PMHx of HTN, A. fib (on Eliquis), DLP, NIDDM2, Hypothyroidism, CKD3, Chronic anemia, Endometrial CA , w ho presented to the emergency room with complaints of weakness of her lower extremities. . She reported that she was at home and had difficulty getting up out of a seated position. Patient was brought to the emergency room for further evaluation. Lab work had revealed some level of leukocytosis and an abnormal urinalysis. Patient was admitted to hospitalist service for further evaluation and treatment. Patient was seen and examined at the bedside. Currently. They deny any events overnight. They deny chest pain, shortness of breath, palpitations, nausea, vomiting, abdominal pain or diarrhea. Patient is incontinent of urine and has Purewick catheter in and place. Objective: Vitals (See below) General: Lying in bed, no acute distress, comfortable, AAOx3 HEENT: NC, AT CVS: +S1S2 Lungs: No auscultated will rhonchi, wheezing or crackles Abdomen: No tenderness or distention and remains soft Morbid obesity Extremities: Chronic lymphedema - erythema bilaterally, appears to be improving; - Calf tenderness Assessment and plan: Weakness - possibly 2/2 infectious etiology 2/2 UTI, possibly 2/2 SSTI, possibly 2/2 deconditioning 2/2 old age debility - Presented to the ER after she had difficulty getting up from a seated position; lives alone and does not have any assistance - Patient remains hemodynamically stable and afebrile - Has been working - Leukocytosis appreciated - mild improvement; No lactic acidosis - UA noted to have 2+ leukocyte esterase, 3+ bacteria - Urine cultures pending; Blood cultures negative at 48 hours - c/w Doxycycline - ; s/p Ceftriaxone (Antibiotic day #4) - c/w Wound care - c/w PT and OT CKD - Patient's baseline creatinine appears to run between 1.6 and 1.8 - Creatinine on admission of 1.7 - s/p IV fluid hydration Atrial fibrillation -c/w rate control with metoprolol succinate -c/w full anticoagulation with Eliquis HTN - BP is well controlled - c/w Metoprolol, Torsemide IDDM2 - c/w ISS and Levemir DLP - c/w Simvastatin Hypothyroidism - c/w Levothyroxine Microcytic Anemia - Hg remains stable - No evidence of bleeding Morbid obesity - Class III - BMI 49.8 - Complicating medical care DVT prophylaxis - c/w full anticoagulation with Eliquis Disposition: - c/w PT and OT - c/w wound care - c/w Doxycycline VS,Fishbone, I+O VS, Fishbone, I+O Laboratory Tests 12/09/19 07:31 Vital Signs Date Time Temp Pulse Resp B/P (MAP) Pulse Ox O2 Delivery O2 Flow Rate FiO2 12/09/19 06:00 99.3 75 18 145/76 (99) 96 Room Air I&O- Last 24 Hours up to 6 AM 12/09/19 06:00 Intake Total 120 ml Output Total 300 ml Balance -180 ml DARCY HANEY MD Dec 09, 2019 12:30
[2019-12-09 14:00] VITALS: BP 124/58
[2019-12-09] MEDS ORDERED: SENOKOT S TAB PO PRN (16:45)
[2019-12-09] MEDS ORDERED: MOM 30ML SUSPENSION UDC PO PRN (16:45)
[2019-12-09] MEDS: VITAMIN D 1,000 INTERNATIONAL UNITS TABLET PO SCH (21:23)
[2019-12-09] MEDS: SIMVASTATIN 20 MG TAB PO SCH (21:23)
[2019-12-09] MEDS: FEBUXOSTAT 40 MG TABLET (ULORIC) PO SCH (21:23)
[2019-12-09] MEDS: METOPROLOL SUCC (TopROL XL) 50MG **XL** TAB PO SCH (21:23)
[2019-12-09] MEDS: NYSTATIN 100,000 UNITS/GM TOPICAL PWD 15 GM TOP PRN (21:24)
[2019-12-09] MEDS: LEVEMIR (INSULIN DETEMIR) 1 UNITS/0.01ML SC SCH (21:24)
[2019-12-09 22:00] VITALS: BP 122/61
[2019-12-10] MEDS: ACETAMINOPHEN TAB 650MG DOSE (2X325MG) PO PRN ×2 (02:26→12:28)
[2019-12-10 06:00] VITALS: BP 159/88
[2019-12-10] MEDS: LEVOTHYROXINE 125MCG TABLET (0.125MG) PO SCH (06:45)
[2019-12-10 06:46] LABS: BASO # 0.1 10^3/uL (0.0-0.2); BASO % 0.5 % (0.0-1.0); EOS # 0.2 10^3/uL (0.0-0.5); EOS % 1.9 % (0.0-3.0); HEMATOCRIT 36.9 % (36.0-47.0); HEMOGLOBIN 10.4 g/dl (12.0-15.5); LYMPH # 1.6 10^3/uL (1.5-5.0); LYMPH % 13.8 % (24.0-44.0); MEAN CORPUSCULAR HEMOGLOBIN 22.5 pg (27.0-33.0); MEAN CORPUSCULAR HGB CONC 28.2 g/dl (32.0-36.5); MEAN CORPUSCULAR VOLUME 79.7 fl (80.0-96.0); MONO # 0.9 10^3/uL (0.0-0.8); MONO % 7.7 % (0.0-5.0); NEUTROPHILS # 8.7 10^3/uL (1.5-8.5); PLATELET COUNT, AUTOMATED 297 10^3/uL (150-450); RED BLOOD COUNT 4.63 10^6/uL (4.00-5.40); WHITE BLOOD COUNT 11.6 10^3/uL (4.0-10.0)
[2019-12-10 07:07] LABS: CALCIUM LEVEL 8.2 MG/DL (8.8-10.2); CREATININE FOR GFR 1.46 MG/DL (0.55-1.30); GLOMERULAR FILTRATION RATE 37.1 (>39); MAGNESIUM LEVEL 1.8 MG/DL (1.8-2.4)
[2019-12-10 08:44] VITALS: BP 128/64
[2019-12-10] MEDS: HumaLOG INSULIN (NovoLOG) PER UNIT SC SCH ×4 (09:43→21:00)
[2019-12-10] MEDS: TORSEMIDE 20 MG TAB PO SCH (09:44)
[2019-12-10] MEDS: AUGMENTIN 875 MG TAB PO SCH ×2 (09:44→21:54)
[2019-12-10] MEDS: APIXABAN 5 MG TAB (ELIQUIS) PO SCH ×2 (09:44→21:54)
[2019-12-10] MEDS: MEGESTROL 40 MG TAB PO SCH ×2 (09:45→21:53)
[2019-12-10] MEDS: VANICREAM MOISTURIZING SKIN CREAM 113GM TUBE TOP SCH ×2 (09:45→21:55)
--- NOTE | 2019-12-10 11:11 | IPNPDOC ---
Text Note Date of Service The patient was seen on 12/10/19. NOTE Subjective: Patient is a 74-year-old female with a PMHx of HTN, A. fib (on Eliquis), DLP, NIDDM2, Hypothyroidism, CKD3, Chronic anemia, Endometrial CA , w ho presented to the emergency room with complaints of weakness of her lower extremities. . She reported that she was at home and had difficulty getting up out of a seated position. Patient was brought to the emergency room for further evaluation. Lab work had revealed some level of leukocytosis and an abnormal urinalysis. Patient was admitted to hospitalist service for further evaluation and treatment. Patient was seen and examined at the bedside. . Patient reports that she's been doing well with physical therapy. She denies any chest pain, shortness of breath or palpitations. Denies nausea, vomiting, abdominal pain or diarrhea. I was called and informed by Dary Phillips NP that INR was 5.7. Review of medical record indicates the patient has not had an INR drawn today. Objective: Vitals (See below) General: Lying in bed, no acute distress, comfortable, AAOx3 HEENT: NC, AT CVS: +S1S2 Lungs: Air entry is fair bilaterally without evidence of rhonchi, rales Abdomen: No distention or tenderness, remains soft, no guarding / rebound Extremities: Chronic lymphedema; erythema is improving; - Calf tenderness Assessment and plan: Weakness - possibly 2/2 infectious etiology 2/2 UTI, possibly 2/2 SSTI, possibly 2/2 deconditioning 2/2 old age debility - Patient had reported significant weakness at home; currently she continues to work with physical therapy - Patient remains hemodynamically stable and afebrile - Leukocytosis appreciated - mild improvement; No lactic acidosis - UA noted to have 2+ leukocyte esterase, 3+ bacteria; Urine cultures 12/06: Escherichia coli, Streptococcus group G, Enterococcus faecalis - Blood cultures 12/06: Negative at 72 hours - Will start Augmentin; Will DC Doxycycline; s/p Ceftriaxone (Antibiotic day #5) - c/w Wound care and PT / OT CKD3 - Patient's baseline creatinine appears to run between 1.6 and 1.8 - Creatinine on admission of 1.7 - s/p IV fluid hydration Atrial fibrillation - Heart rate remains well-controlled - c/w rate control with metoprolol succinate - c/w full anticoagulation with Eliquis HTN - BP is well controlled - c/w Metoprolol, Torsemide IDDM2 - c/w ISS and Levemir DLP - c/w Simvastatin Hypothyroidism - c/w Levothyroxine Microcytic Anemia - Hg remains stable - No evidence of bleeding Morbid obesity - Class III - BMI 49.8 - Complicating medical care DVT prophylaxis - c/w full anticoagulation with Eliquis Disposition: - c/w PT / OT; c/w wound care - Will start Augmentin VS,Fishbone, I+O VS, Fishbone, I+O Laboratory Tests 12/10/19 06:07 Vital Signs Date Time Temp Pulse Resp B/P (MAP) Pulse Ox O2 Delivery O2 Flow Rate FiO2 12/10/19 08:44 98.3 96 17 128/64 (85) 93 12/10/19 06:00 Room Air I&O- Last 24 Hours up to 6 AM 12/10/19 06:00 Intake Total 550 ml Output Total 1200 ml Balance -650 ml DARCY HANEY MD Dec 10, 2019 11:11
[2019-12-10 14:00] VITALS: BP 146/69
[2019-12-10 15:24] VITALS: BP 159/71
[2019-12-10] MEDS: SIMVASTATIN 20 MG TAB PO SCH (21:53)
[2019-12-10] MEDS: METOPROLOL SUCC (TopROL XL) 50MG **XL** TAB PO SCH (21:54)
[2019-12-10] MEDS: FEBUXOSTAT 40 MG TABLET (ULORIC) PO SCH (21:54)
[2019-12-10] MEDS: VITAMIN D 1,000 INTERNATIONAL UNITS TABLET PO SCH (21:54)
[2019-12-10] MEDS: LEVEMIR (INSULIN DETEMIR) 1 UNITS/0.01ML SC SCH (21:55)
[2019-12-10 22:00] VITALS: BP 158/69
[2019-12-11] MEDS: ACETAMINOPHEN TAB 650MG DOSE (2X325MG) PO PRN ×4 (00:17→18:16)
[2019-12-11 06:00] VITALS: BP 161/69
[2019-12-11] MEDS: LEVOTHYROXINE 125MCG TABLET (0.125MG) PO SCH (06:17)
[2019-12-11 06:31] LABS: BASO # 0.1 10^3/uL (0.0-0.2); BASO % 0.5 % (0.0-1.0); EOS # 0.2 10^3/uL (0.0-0.5); HEMATOCRIT 36.8 % (36.0-47.0); HEMOGLOBIN 10.5 g/dl (12.0-15.5); LYMPH # 1.6 10^3/uL (1.5-5.0); LYMPH % 14.1 % (24.0-44.0); MEAN CORPUSCULAR HEMOGLOBIN 22.6 pg (27.0-33.0); MEAN CORPUSCULAR HGB CONC 28.5 g/dl (32.0-36.5); MEAN CORPUSCULAR VOLUME 79.1 fl (80.0-96.0); MONO # 0.8 10^3/uL (0.0-0.8); MONO % 7.5 % (0.0-5.0); NEUTROPHILS # 8.4 10^3/uL (1.5-8.5); NEUTROPHILS % 74.9 % (36.0-66.0); PLATELET COUNT, AUTOMATED 271 10^3/uL (150-450); RED BLOOD COUNT 4.65 10^6/uL (4.00-5.40); WHITE BLOOD COUNT 11.2 10^3/uL (4.0-10.0)
[2019-12-11 06:49] LABS: CALCIUM LEVEL 8.9 MG/DL (8.8-10.2); CREATININE FOR GFR 1.47 MG/DL (0.55-1.30); GLOMERULAR FILTRATION RATE 36.8 (>39); MAGNESIUM LEVEL 1.9 MG/DL (1.8-2.4); POTASSIUM SERUM 4.3 MEQ/L (3.5-5.1)
[2019-12-11] MEDS: MEGESTROL 40 MG TAB PO SCH ×2 (09:10→21:01)
[2019-12-11] MEDS: AUGMENTIN 875 MG TAB PO SCH ×2 (09:10→21:02)
[2019-12-11] MEDS: VANICREAM MOISTURIZING SKIN CREAM 113GM TUBE TOP SCH ×2 (09:11→21:04)
[2019-12-11] MEDS: HumaLOG INSULIN (NovoLOG) PER UNIT SC SCH ×4 (09:11→21:03)
[2019-12-11] MEDS: APIXABAN 5 MG TAB (ELIQUIS) PO SCH ×2 (09:11→21:02)
[2019-12-11] MEDS: TORSEMIDE 20 MG TAB PO SCH (09:11)
[2019-12-11 14:00] VITALS: BP 153/70
--- NOTE | 2019-12-11 14:24 | IPNPDOC ---
Text Note Date of Service The patient was seen on 12/11/19. NOTE Subjective: Patient is a 74-year-old female with a PMHx of HTN, A. fib (on Eliquis), DLP, NIDDM2, Hypothyroidism, CKD3, Chronic anemia, Endometrial CA , w ho presented to the emergency room with complaints of weakness of her lower extremities. . She reported that she was at home and had difficulty getting up out of a seated position. Patient was brought to the emergency room for further evaluation. Lab work had revealed some level of leukocytosis and an abnormal urinalysis. Patient was admitted to hospitalist service for further evaluation and treatment. Patient was seen and examined at the bedside. . Currently, patient reports that she has had an uneventful evening. She continues to work with physical therapy, however, has failed to progress to the point that she can get home with continued rehabilitation at home. Instead it is recommended that she continue with subacute rehabilitation. Patient denies any chest pain, short of breath or palpitations. Denies nausea, vomiting, abdominal pain or diarrhea. She continues to have a purewick catheter in place. Objective: Vitals (See below) General: Lying in bed, no acute distress, comfortable, AAOx3 HEENT: NC, AT CVS: +S1S2 Lungs: Auscultation is without any rhonchi, rales or wheezing Abdomen: Obese without evidence of distention or tenderness, and remained soft Extremities: Chronic lymphedema with erythema but no warmth or tenderness, Calf tenderness Assessment and plan: Weakness - possibly 2/2 infectious etiology 2/2 UTI, possibly 2/2 SSTI, possibly 2/2 deconditioning 2/2 old age debility - Continues to work with physical therapy and has been progressing relatively - still suggesting continued rehabilitation upon discharge - Patient remains hemodynamically stable and afebrile - Leukocytosis appreciated - mild improvement; No lactic acidosis - UA noted to have 2+ leukocyte esterase, 3+ bacteria; Urine cultures 12/06: Esch erichia coli, Streptococcus group G, Enterococcus faecalis - Blood cultures 12/06: Negative at 72 hours - c/w Augmentin (Day #2); Will DC Doxycycline; s/p Ceftriaxone (Antibiotic day #6) - c/w Wound care and PT / OT CKD3 - Patient's baseline creatinine appears to run between 1.6 and 1.8 - Creatinine on admission of 1.7 - s/p IV fluid hydration Atrial fibrillation - Heart rate remains well-controlled - c/w rate control with metoprolol succinate - c/w full anticoagulation with Eliquis HTN - BP is well controlled - c/w Metoprolol, Torsemide IDDM2 - c/w ISS and Levemir DLP - c/w Simvastatin Hypothyroidism - c/w Levothyroxine Microcytic Anemia - Hg remains stable - No evidence of bleeding Suspected Endometrial Cancer - Patient 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 Manzanares; patient is scheduled for an outpatient follow up Morbid obesity - Class III - BMI 49.8 - Complicating medical care DVT prophylaxis - c/w full anticoagulation with Eliquis Disposition: - c/w PT / OT; c/w wound care - c/w Augmentin - Will change patient's ALC status today VS,Fishbone, I+O VS, Fishbone, I+O Laboratory Tests 12/11/19 06:18 Vital Signs Date Time Temp Pulse Resp B/P (MAP) Pulse Ox O2 Delivery O2 Flow Rate FiO2 12/11/19 06:00 98.6 82 20 161/69 (99) 96 Room Air I&O- Last 24 Hours up to 6 AM 12/11/19 06:00 Intake Total 770 ml Output Total 2550 ml Balance -1780 ml DARCY HANEY MD Dec 11, 2019 14:24
[2019-12-11] MEDS: SIMVASTATIN 20 MG TAB PO SCH (21:02)
[2019-12-11] MEDS: VITAMIN D 1,000 INTERNATIONAL UNITS TABLET PO SCH (21:02)
[2019-12-11] MEDS: CALCITRIOL 0.25 MCG CAP (S0169) PO SCH (21:02)
[2019-12-11] MEDS: FEBUXOSTAT 40 MG TABLET (ULORIC) PO SCH (21:02)
[2019-12-11] MEDS: LEVEMIR (INSULIN DETEMIR) 1 UNITS/0.01ML SC SCH (21:03)
[2019-12-11] MEDS: METOPROLOL SUCC (TopROL XL) 50MG **XL** TAB PO SCH (21:04)
[2019-12-11 22:00] VITALS: BP 136/67
[2019-12-12] MEDS: LEVOTHYROXINE 125MCG TABLET (0.125MG) PO SCH (05:46)
[2019-12-12 06:00] VITALS: BP 145/71
[2019-12-12 06:52] LABS: BASO # 0.1 10^3/uL (0.0-0.2); BASO % 0.8 % (0.0-1.0); EOS # 0.2 10^3/uL (0.0-0.5); EOS % 1.9 % (0.0-3.0); HEMOGLOBIN 10.2 g/dl (12.0-15.5); LYMPH # 1.5 10^3/uL (1.5-5.0); MEAN CORPUSCULAR HEMOGLOBIN 22.9 pg (27.0-33.0); MEAN CORPUSCULAR HGB CONC 29.1 g/dl (32.0-36.5); MEAN CORPUSCULAR VOLUME 78.7 fl (80.0-96.0); MONO # 0.9 10^3/uL (0.0-0.8); MONO % 7.6 % (0.0-5.0); NEUTROPHILS # 8.9 10^3/uL (1.5-8.5); NEUTROPHILS % 75.8 % (36.0-66.0); PLATELET COUNT, AUTOMATED 286 10^3/uL (150-450); RED BLOOD COUNT 4.45 10^6/uL (4.00-5.40); WHITE BLOOD COUNT 11.7 10^3/uL (4.0-10.0)
[2019-12-12 07:22] LABS: CALCIUM LEVEL 8.9 MG/DL (8.8-10.2); CREATININE FOR GFR 1.54 MG/DL (0.55-1.30); GLOMERULAR FILTRATION RATE 34.9 (>39); MAGNESIUM LEVEL 1.9 MG/DL (1.8-2.4); POTASSIUM SERUM 4.6 MEQ/L (3.5-5.1)
[2019-12-12] MEDS: TORSEMIDE 20 MG TAB PO SCH (08:12)
[2019-12-12] MEDS: AUGMENTIN 875 MG TAB PO SCH ×2 (08:12→21:58)
[2019-12-12] MEDS: HumaLOG INSULIN (NovoLOG) PER UNIT SC SCH ×4 (08:12→21:57)
[2019-12-12] MEDS: APIXABAN 5 MG TAB (ELIQUIS) PO SCH ×2 (08:12→21:58)
[2019-12-12] MEDS: MEGESTROL 40 MG TAB PO SCH ×2 (08:12→21:57)
[2019-12-12] MEDS: VANICREAM MOISTURIZING SKIN CREAM 113GM TUBE TOP SCH ×2 (08:13→21:59)
[2019-12-12] MEDS: ACETAMINOPHEN TAB 650MG DOSE (2X325MG) PO PRN (08:26)
[2019-12-12] MEDS ORDERED: ACETAMINOPHEN TAB 650MG DOSE (2X325MG) PO ONE (11:45)
[2019-12-12 14:00] VITALS: BP 140/68
--- NOTE | 2019-12-12 14:46 | REP ---
PELVIS, BILATERAL HIP SERIES: Five views. HISTORY: Bilateral hip pain. COMPARISON STUDY: December 17, 2015. FINDINGS: There is diffuse osteopenia. There is vascular calcification in the pelvis. Femoral heads are smooth and rounded. Hip joint spaces are preserved. No fracture or bony destructive lesion is seen. IMPRESSION: No acute abnormality. Electronically Signed by Toni Thorpe MD 12/12/2019 07:29 P
[2019-12-12] MEDS: LEVEMIR (INSULIN DETEMIR) 1 UNITS/0.01ML SC SCH (21:57)
[2019-12-12] MEDS: FEBUXOSTAT 40 MG TABLET (ULORIC) PO SCH (21:58)
[2019-12-12] MEDS: VITAMIN D 1,000 INTERNATIONAL UNITS TABLET PO SCH (21:58)
[2019-12-12] MEDS: SIMVASTATIN 20 MG TAB PO SCH (21:58)
[2019-12-12] MEDS: METOPROLOL SUCC (TopROL XL) 50MG **XL** TAB PO SCH (21:59)
[2019-12-12 22:00] VITALS: BP 146/68
[2019-12-13 06:00] VITALS: BP 164/87
[2019-12-13] MEDS: LEVOTHYROXINE 125MCG TABLET (0.125MG) PO SCH (06:10)
[2019-12-13 06:27] LABS: BASO # 0.1 10^3/uL (0.0-0.2); BASO % 0.7 % (0.0-1.0); EOS # 0.3 10^3/uL (0.0-0.5); EOS % 2.2 % (0.0-3.0); HEMOGLOBIN 10.4 g/dl (12.0-15.5); LYMPH # 1.7 10^3/uL (1.5-5.0); LYMPH % 13.7 % (24.0-44.0); MEAN CORPUSCULAR HEMOGLOBIN 22.9 pg (27.0-33.0); MEAN CORPUSCULAR HGB CONC 28.9 g/dl (32.0-36.5); MEAN CORPUSCULAR VOLUME 79.1 fl (80.0-96.0); MONO # 0.9 10^3/uL (0.0-0.8); MONO % 7.3 % (0.0-5.0); NEUTROPHILS # 9.4 10^3/uL (1.5-8.5); NEUTROPHILS % 74.9 % (36.0-66.0); PLATELET COUNT, AUTOMATED 295 10^3/uL (150-450); RED BLOOD COUNT 4.55 10^6/uL (4.00-5.40); WHITE BLOOD COUNT 12.5 10^3/uL (4.0-10.0)
[2019-12-13 06:49] LABS: CALCIUM LEVEL 9.2 MG/DL (8.8-10.2); CREATININE FOR GFR 1.4 MG/DL (0.55-1.30); GLOMERULAR FILTRATION RATE 38.9 (>39); MAGNESIUM LEVEL 1.7 MG/DL (1.8-2.4); POTASSIUM SERUM 4.3 MEQ/L (3.5-5.1)
[2019-12-13] MEDS: MEGESTROL 40 MG TAB PO SCH ×2 (08:22→21:37)
[2019-12-13] MEDS: AUGMENTIN 875 MG TAB PO SCH ×2 (08:22→21:36)
[2019-12-13] MEDS: APIXABAN 5 MG TAB (ELIQUIS) PO SCH ×2 (08:22→21:38)
[2019-12-13] MEDS: HumaLOG INSULIN (NovoLOG) PER UNIT SC SCH ×4 (08:22→21:00)
[2019-12-13] MEDS: TORSEMIDE 20 MG TAB PO SCH (08:22)
[2019-12-13] MEDS: VANICREAM MOISTURIZING SKIN CREAM 113GM TUBE TOP SCH ×2 (08:23→21:40)
[2019-12-13] MEDS: ACETAMINOPHEN TAB 650MG DOSE (2X325MG) PO PRN ×2 (09:40→21:38)
[2019-12-13] MEDS: VENLAFAXINE 37.5 MG TAB PO SCH (17:24)
[2019-12-13] MEDS: LEVEMIR (INSULIN DETEMIR) 1 UNITS/0.01ML SC SCH (21:36)
[2019-12-13] MEDS: SIMVASTATIN 20 MG TAB PO SCH (21:36)
[2019-12-13] MEDS: CALCITRIOL 0.25 MCG CAP (S0169) PO SCH (21:36)
[2019-12-13] MEDS: FEBUXOSTAT 40 MG TABLET (ULORIC) PO SCH (21:36)
[2019-12-13] MEDS: VITAMIN D 1,000 INTERNATIONAL UNITS TABLET PO SCH (21:37)
[2019-12-13] MEDS: METOPROLOL SUCC (TopROL XL) 50MG **XL** TAB PO SCH (21:39)
[2019-12-14 06:00] VITALS: BP 161/78
[2019-12-14] MEDS: LEVOTHYROXINE 125MCG TABLET (0.125MG) PO SCH (06:15)
[2019-12-14 06:24] LABS: BASO # 0.1 10^3/uL (0.0-0.2); BASO % 0.6 % (0.0-1.0); EOS # 0.2 10^3/uL (0.0-0.5); HEMATOCRIT 37.9 % (36.0-47.0); HEMOGLOBIN 10.6 g/dl (12.0-15.5); LYMPH # 1.8 10^3/uL (1.5-5.0); LYMPH % 15.3 % (24.0-44.0); MEAN CORPUSCULAR HEMOGLOBIN 22.4 pg (27.0-33.0); MEAN CORPUSCULAR VOLUME 80.1 fl (80.0-96.0); MONO # 0.9 10^3/uL (0.0-0.8); MONO % 7.6 % (0.0-5.0); NEUTROPHILS # 8.7 10^3/uL (1.5-8.5); NEUTROPHILS % 73.5 % (36.0-66.0); PLATELET COUNT, AUTOMATED 293 10^3/uL (150-450); RED BLOOD COUNT 4.73 10^6/uL (4.00-5.40); WHITE BLOOD COUNT 11.8 10^3/uL (4.0-10.0)
[2019-12-14 06:50] LABS: CALCIUM LEVEL 8.7 MG/DL (8.8-10.2); CREATININE FOR GFR 1.49 MG/DL (0.55-1.30); GLOMERULAR FILTRATION RATE 36.2 (>39); MAGNESIUM LEVEL 1.8 MG/DL (1.8-2.4); POTASSIUM SERUM 4.7 MEQ/L (3.5-5.1)
[2019-12-14] MEDS: VENLAFAXINE 37.5 MG TAB PO SCH (09:51)
[2019-12-14] MEDS: HumaLOG INSULIN (NovoLOG) PER UNIT SC SCH ×4 (09:51→21:00)
[2019-12-14] MEDS: TORSEMIDE 20 MG TAB PO SCH (09:57)
[2019-12-14] MEDS: CINACALCET 30 MG TAB (SENSIPAR) PO SCH (09:57)
[2019-12-14] MEDS: APIXABAN 5 MG TAB (ELIQUIS) PO SCH ×2 (09:57→22:04)
[2019-12-14] MEDS: AUGMENTIN 875 MG TAB PO SCH ×2 (09:57→22:04)
[2019-12-14] MEDS: MEGESTROL 40 MG TAB PO SCH ×2 (09:59→22:05)
[2019-12-14] MEDS: VANICREAM MOISTURIZING SKIN CREAM 113GM TUBE TOP SCH ×2 (10:01→22:03)
[2019-12-14] MEDS: ACETAMINOPHEN TAB 650MG DOSE (2X325MG) PO PRN (10:28)
[2019-12-14] MEDS: VITAMIN D 1,000 INTERNATIONAL UNITS TABLET PO SCH (22:04)
[2019-12-14] MEDS: LEVEMIR (INSULIN DETEMIR) 1 UNITS/0.01ML SC SCH (22:04)
[2019-12-14] MEDS: FEBUXOSTAT 40 MG TABLET (ULORIC) PO SCH (22:04)
[2019-12-14] MEDS: SIMVASTATIN 20 MG TAB PO SCH (22:04)
[2019-12-14] MEDS: METOPROLOL SUCC (TopROL XL) 50MG **XL** TAB PO SCH (22:05)
[2019-12-15] MEDS: LEVOTHYROXINE 125MCG TABLET (0.125MG) PO SCH (05:35)
[2019-12-15 06:00] VITALS: BP 146/78
[2019-12-15 06:50] LABS: BASO # 0.1 10^3/uL (0.0-0.2); BASO % 0.7 % (0.0-1.0); EOS # 0.2 10^3/uL (0.0-0.5); EOS % 1.8 % (0.0-3.0); HEMATOCRIT 38.6 % (36.0-47.0); HEMOGLOBIN 11.4 g/dl (12.0-15.5); LYMPH # 1.5 10^3/uL (1.5-5.0); LYMPH % 13.2 % (24.0-44.0); MEAN CORPUSCULAR HEMOGLOBIN 23.4 pg (27.0-33.0); MEAN CORPUSCULAR HGB CONC 29.5 g/dl (32.0-36.5); MEAN CORPUSCULAR VOLUME 79.1 fl (80.0-96.0); MONO # 0.9 10^3/uL (0.0-0.8); MONO % 8.2 % (0.0-5.0); NEUTROPHILS # 8.6 10^3/uL (1.5-8.5); PLATELET COUNT, AUTOMATED 313 10^3/uL (150-450); RED BLOOD COUNT 4.88 10^6/uL (4.00-5.40); WHITE BLOOD COUNT 11.5 10^3/uL (4.0-10.0)
[2019-12-15 07:03] LABS: CALCIUM LEVEL 8.5 MG/DL (8.8-10.2); CREATININE FOR GFR 1.45 MG/DL (0.55-1.30); GLOMERULAR FILTRATION RATE 37.4 (>39); MAGNESIUM LEVEL 1.8 MG/DL (1.8-2.4); POTASSIUM SERUM 4.4 MEQ/L (3.5-5.1)
[2019-12-15] MEDS: APIXABAN 5 MG TAB (ELIQUIS) PO SCH ×2 (08:29→22:10)
[2019-12-15] MEDS: AUGMENTIN 875 MG TAB PO SCH ×2 (08:29→22:10)
[2019-12-15] MEDS: HumaLOG INSULIN (NovoLOG) PER UNIT SC SCH ×4 (08:29→22:11)
[2019-12-15] MEDS: MEGESTROL 40 MG TAB PO SCH ×2 (08:30→22:10)
[2019-12-15] MEDS: VANICREAM MOISTURIZING SKIN CREAM 113GM TUBE TOP SCH ×2 (08:30→22:11)
[2019-12-15] MEDS: VENLAFAXINE 37.5 MG TAB PO SCH (08:30)
[2019-12-15] MEDS: TORSEMIDE 20 MG TAB PO SCH (08:30)
[2019-12-15] MEDS: ACETAMINOPHEN TAB 650MG DOSE (2X325MG) PO PRN ×2 (09:33→18:02)
[2019-12-15] MEDS: FEBUXOSTAT 40 MG TABLET (ULORIC) PO SCH (22:10)
[2019-12-15] MEDS: METOPROLOL SUCC (TopROL XL) 50MG **XL** TAB PO SCH (22:10)
[2019-12-15] MEDS: VITAMIN D 1,000 INTERNATIONAL UNITS TABLET PO SCH (22:10)
[2019-12-15] MEDS: SIMVASTATIN 20 MG TAB PO SCH (22:10)
[2019-12-15] MEDS: LEVEMIR (INSULIN DETEMIR) 1 UNITS/0.01ML SC SCH (22:11)
[2019-12-16] MEDS: LEVOTHYROXINE 125MCG TABLET (0.125MG) PO SCH (05:26)
[2019-12-16 06:00] VITALS: BP 143/74
[2019-12-16] MEDS: ACETAMINOPHEN TAB 650MG DOSE (2X325MG) PO PRN (06:58)
[2019-12-16 07:01] LABS: BASO # 0.1 10^3/uL (0.0-0.2); BASO % 0.8 % (0.0-1.0); EOS # 0.2 10^3/uL (0.0-0.5); EOS % 1.8 % (0.0-3.0); HEMATOCRIT 38.7 % (36.0-47.0); HEMOGLOBIN 11.3 g/dl (12.0-15.5); LYMPH # 1.6 10^3/uL (1.5-5.0); LYMPH % 12.6 % (24.0-44.0); MEAN CORPUSCULAR HGB CONC 29.2 g/dl (32.0-36.5); MEAN CORPUSCULAR VOLUME 78.8 fl (80.0-96.0); MONO # 0.9 10^3/uL (0.0-0.8); MONO % 7.2 % (0.0-5.0); NEUTROPHILS # 9.5 10^3/uL (1.5-8.5); NEUTROPHILS % 76.4 % (36.0-66.0); PLATELET COUNT, AUTOMATED 322 10^3/uL (150-450); RED BLOOD COUNT 4.91 10^6/uL (4.00-5.40); WHITE BLOOD COUNT 12.5 10^3/uL (4.0-10.0)
[2019-12-16 07:27] LABS: CALCIUM LEVEL 8.8 MG/DL (8.8-10.2); CREATININE FOR GFR 1.48 MG/DL (0.55-1.30); GLOMERULAR FILTRATION RATE 36.5 (>39); MAGNESIUM LEVEL 1.7 MG/DL (1.8-2.4); POTASSIUM SERUM 4.1 MEQ/L (3.5-5.1)
[2019-12-16] MEDS: VENLAFAXINE 37.5 MG TAB PO SCH (09:00)
[2019-12-16] MEDS: HumaLOG INSULIN (NovoLOG) PER UNIT SC SCH ×4 (10:34→21:00)
[2019-12-16] MEDS: AUGMENTIN 875 MG TAB PO SCH ×2 (10:34→22:22)
[2019-12-16] MEDS: MEGESTROL 40 MG TAB PO SCH ×2 (10:35→22:23)
[2019-12-16] MEDS: APIXABAN 5 MG TAB (ELIQUIS) PO SCH ×2 (10:35→22:24)
[2019-12-16] MEDS: TORSEMIDE 20 MG TAB PO SCH (10:36)
[2019-12-16] MEDS: VANICREAM MOISTURIZING SKIN CREAM 113GM TUBE TOP SCH ×2 (10:36→22:24)
[2019-12-16] MEDS: LEVEMIR (INSULIN DETEMIR) 1 UNITS/0.01ML SC SCH (22:22)
[2019-12-16] MEDS: FEBUXOSTAT 40 MG TABLET (ULORIC) PO SCH (22:23)
[2019-12-16] MEDS: VITAMIN D 1,000 INTERNATIONAL UNITS TABLET PO SCH (22:23)
[2019-12-16] MEDS: SIMVASTATIN 20 MG TAB PO SCH (22:23)
[2019-12-16] MEDS: METOPROLOL SUCC (TopROL XL) 50MG **XL** TAB PO SCH (22:24)
[2019-12-17] MEDS: LEVOTHYROXINE 125MCG TABLET (0.125MG) PO SCH (05:42)
[2019-12-17 06:00] VITALS: BP 161/88
[2019-12-17] MEDS: VENLAFAXINE 37.5 MG TAB PO SCH (08:42)
[2019-12-17] MEDS: AUGMENTIN 875 MG TAB PO SCH ×2 (08:42→22:30)
[2019-12-17] MEDS: APIXABAN 5 MG TAB (ELIQUIS) PO SCH ×2 (08:42→22:30)
[2019-12-17] MEDS: TORSEMIDE 20 MG TAB PO SCH (08:43)
[2019-12-17] MEDS: MEGESTROL 40 MG TAB PO SCH ×2 (08:43→22:30)
[2019-12-17] MEDS: ACETAMINOPHEN TAB 650MG DOSE (2X325MG) PO PRN ×2 (08:44→22:33)
[2019-12-17] MEDS: VANICREAM MOISTURIZING SKIN CREAM 113GM TUBE TOP SCH ×2 (08:44→22:32)
[2019-12-17] MEDS: HumaLOG INSULIN (NovoLOG) PER UNIT SC SCH ×4 (08:45→22:31)
[2019-12-17] MEDS ORDERED: ACET1TAB55 PO (11:55)
[2019-12-17] MEDS ORDERED: VENL37TA PO (11:55)
[2019-12-17] MEDS ORDERED: VANI1CRE5 TOP (11:55)
[2019-12-17] MEDS ORDERED: SENN-52 PO (11:55)
[2019-12-17] MEDS ORDERED: AMOX875T2 PO (11:55)
--- NOTE | 2019-12-17 15:40 | DS.PDOC ---
Discharge Summary General Date of Admission Dec 06, 2019 at 23:39 Date of Discharge 12/17/19 Discharge Summary PROCEDURES PERFORMED DURING STAY: [None]. DISCHARGE DIAGNOSES: UTI SKin and soft tissue infection of the legs Bilateral venous stasis with lymphedema improving , stasis dermatitis , stasis rubor and venous stasis ulcers. Morbid obesity Generalized deconditioning and difficulty in ambulation SECONDARY DIAGNOSIS: Atrial fib (on Eliquis), DLP, NIDDM2, hypertension, Hypothyroidism, CKD3, Chronic anemia, Endometrial CA , Hyperuricemia, Secondary hyperparathyroidism. COMPLICATIONS/CHIEF COMPLAINT: Weakness. HISTORY OF PRESENT ILLNESS: See History and physical HOSPITAL COURSE: Patient is a 74-year-old female with a PMHx of HTN, A. fib (on Eliquis), DLP, NIDDM2, Hypothyroidism, CKD3, Chronic anemia, Endometrial CA , who presented to the emergency room with complaints of weakness of her lower extremities. . She reported that she was at home and had difficulty getting up out of a seated position. [facility] Lab work had revealed some level of leukocytosis and an abnormal urinalysis. Patient was admitted to hospitalist service for further evaluation and treatment. She was found to have UTi and skin and soft tissue infection, severe generalized deconditioning. SHe has been working with PT but has been progressing slowly and PT reccomended further reha bilitation upon discharge. UTI - UA noted to have 2+ leukocyte esterase, 3+ bacteria; Urine cultures 12/06: Escherichia coli, Streptococcus group G, Enterococcus faecalis - Blood cultures 12/06: Negative at 72 hours - S/p ceftriaxone. Skin and soft tissue infection -Has bilateral venous stasis ulcers on th legs , no more infection at present. - c/w Augmentin #6 now, for 2 more days. - S/p 6 days of ceftriaxone - c/w Wound care and PT / OT Weakness - possibly 2/2 infectious etiology 2/2 UTI, possibly 2/2 Skin and soft Tissue infection and generalized deconditioning 2/2 old age debility - Continues to work with physical therapy and has been progressing slowly - continue to rehab. CKD3 with secondary hyperparathyroidism - Patient's baseline creatinine appears to run between 1.5 and 1.8 - Creatinine on admission of 1.7 - At present creatinine is at 1.48 - continue calcitriol, sensipar, torsemide Atrial fibrillation - Heart rate remains well-controlled - c/w rate control with metoprolol succinate - c/w full anticoagulation with Eliquis HTN - BP is well controlled - c/w Metoprolol, Torsemide IDDM2 - c/w ISS and Levemir DLP - c/w Simvastatin Hypothyroidism - c/w Levothyroxine Microcytic Anemia - Hg remains stable - No evidence of bleeding Suspected Endometrial Cancer - Patient follows 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 Manzanares; patient is scheduled for an outpatient follow up Morbid obesity - Class III - BMI 49.8 - Complicating medical care Hyperuricemia -continue uloric DISCHARGE MEDICATIONS: Please see below. ALLERGIES: Please see below. PHYSICAL EXAMINATION ON DISCHARGE: VITAL SIGNS: Please see below. General: Lying in bed, no acute distress, comfortable, AAOx3 HEENT: NC, AT, moist mucous membranes, anicteric eyes. CVS: +S1S2, no rub , murmur or gallop Lungs: Auscultation is without any ronchi, rales or wheezing Abdomen: Obese without evidence of distention or tenderness, and remained soft, normal bowel sounds. Extremities: Trace edema, Chronic lymphedema with erythema but no warmth or tenderness, stasis dermatitis with venous stasis ulcers. LABORATORY DATA: Please see below. IMAGING: Bilateral lower extremity dopplers negative for any DVT. ACTIVITY: [As tolerated]. DIET: Consistent carb. DISCHARGE PLAN: [facility] in [place] DISPOSITION: . DISCHARGE INSTRUCTIONS: Follow up with PMD in 1 to [address] Manzanares HANDY WORKER as per outpatient schedule. DISCHARGE CONDITION: [Stable]. TIME SPENT ON DISCHARGE: 35 minutes. Vital Signs/I&Os Vital Signs Date Time Temp Pulse Resp B/P (MAP) Pulse Ox O2 Delivery O2 Flow Rate FiO2 12/17/19 06:00 99.2 86 18 161/88 (112) 95 Room Air I&O- Last 24 Hours up to 6 AM 12/17/19 06:00 Intake Total 300 ml Output Total 1550 ml Balance -1250 ml Laboratory Data Labs 24H Laboratory Tests 2 12/16/19 16:37: Bedside Glucose (Misc Panel) 204H 12/16/19 21:20: Bedside Glucose (Misc Panel) 241H 12/17/19 05:55: Bedside Glucose (Misc Panel) 179H 12/17/19 12:10: Bedside Glucose (Misc Panel) 230H FSBS Laboratory Tests Test 12/16/19 16:37 12/16/19 21:20 12/17/19 05:55 12/17/19 12:10 Range/Units Bedside Glucose (Misc Panel) 204 241 179 230 83-110 MG/DL Discharge Medications Scheduled Amoxicillin/Potassium Clav (Amox-Clav 875-125 mg Tablet) 1 Each Tablet, 875 MG PO BID Apixaban (Eliquis) 5 Mg Tab, 5 MG PO BID, (Reported) Calcitriol (Rocaltrol) 0.5 Mcg Cap, 0.5 MCG PO 2XW, (Reported) TUESDAYS/THURSDAYS AT BEDTIME Cholecalciferol (Vitamin D3) (Vitamin D3) 2,000 Unit Tab, 2,000 UNIT PO QHS, (Reported) Cinacalcet (Sensipar) 30 Mg Tab, 30 MG PO 1XWK, (Reported) FRIDAYS Emollient Base (Vanicream) 453 Gm Cream..g., 0 DOSE TOP BID Febuxostat (Febuxostat) 40 Mg Tablet, 40 MG PO QHS, (Reported) Folic Acid/Vit B Complex and C (Julisa-Jaylyn Tablet) 1 Tab Tab, 1 TAB PO DAILY, (Reported) Insulin Glargine (Lantus) 100 Unit/Ml Inj, 8 UNITS SC QHS, (Reported) Insulin Human Lispro (Novolog) 100 U/Ml Inj, 1 DOSE SC AC, (Reported) PER SLIDING SCALE Levothyroxine Sodium (Levothyroxine Sodium) 125 Mcg Tab, 125 MCG PO DAILY, (Reported) Megestrol Acetate (Megestrol Acetate) 40 Mg Tablet, 160 MG PO BID, (Reported) Metoprolol Succinate (Toprol Xl) 50 Mg Tab.er.24h, 50 MG PO QHS, (Reported) Simvastatin (Simvastatin) 40 Mg Tab, 20 MG PO QHS, (Reported) Torsemide (Torsemide) 20 Mg Tab, 40 MG PO DAILY, (Reported) Venlafaxine HCl (Venlafaxine HCl) 37.5 Mg Tablet, 37.5 MG PO DAILY Scheduled PRN Acetaminophen (Acetaminophen) 325 Mg Tablet, 650 MG PO Q6HP PRN for PAIN / FEVER Nystatin (Nystatin Powder) 15 Gm Powder, 1 DOSE TOP BID PRN for RASH, (Reported) PLACES UNDER STOMACH FOLDS Sennosides/Docusate Sodium (Senna Plus Tablet) 1 Each Tablet, 2 TAB PO BIDP PRN for CONSTIPATION Allergies Coded Allergies: atorvastatin (Verified Adverse Reaction, Intermediate, cramps, 12/06/19) cramps morphine (Verified Adverse Reaction, Intermediate, HALLUCINATIONS, 11/09 ) hallucinations ANA VILLANUEVA MD Dec 17, 2019 15:40
[2019-12-17 22:31] VITALS: BP 134/66
[2019-12-17] MEDS: FEBUXOSTAT 40 MG TABLET (ULORIC) PO SCH (22:31)
[2019-12-17] MEDS: METOPROLOL SUCC (TopROL XL) 50MG **XL** TAB PO SCH (22:31)
[2019-12-17] MEDS: VITAMIN D 1,000 INTERNATIONAL UNITS TABLET PO SCH (22:31)
[2019-12-17] MEDS: SIMVASTATIN 20 MG TAB PO SCH (22:31)
[2019-12-17] MEDS: LEVEMIR (INSULIN DETEMIR) 1 UNITS/0.01ML SC SCH (22:32)
[2019-12-17] MEDS: NYSTATIN 100,000 UNITS/GM TOPICAL PWD 15 GM TOP PRN (22:32)
[2019-12-18] MEDS: LEVOTHYROXINE 125MCG TABLET (0.125MG) PO SCH (05:38)
[2019-12-18] MEDS: ACETAMINOPHEN TAB 650MG DOSE (2X325MG) PO PRN (05:38)
[2019-12-18 06:00] VITALS: BP 152/81
[2019-12-18] MEDS: AUGMENTIN 875 MG TAB PO SCH (08:32)
[2019-12-18] MEDS: TORSEMIDE 20 MG TAB PO SCH (08:32)
[2019-12-18] MEDS: MEGESTROL 40 MG TAB PO SCH (08:33)
[2019-12-18] MEDS: APIXABAN 5 MG TAB (ELIQUIS) PO SCH (08:33)
[2019-12-18] MEDS: VANICREAM MOISTURIZING SKIN CREAM 113GM TUBE TOP SCH (08:33)
[2019-12-18] MEDS: VENLAFAXINE 37.5 MG TAB PO SCH (08:33)
[2019-12-18] MEDS: HumaLOG INSULIN (NovoLOG) PER UNIT SC SCH (08:34)
--- NOTE | 2019-12-18 12:36 | IPNPDOC ---
Text Note Date of Service The patient was seen on 12/18/19. NOTE No acute overnight events. patient could not be discharged as transportation could not come on time. Will be discharged to [facility] today. Physical Exam VITAL SIGNS: Please see below. General: Lying in bed, no acute distress, comfortable, AAOx3 HEENT: NC, AT, moist mucous membranes, anicteric eyes. CVS: +S1S2, no rub , murmur or gallop Lungs: Auscultation is without any ronchi, rales or wheezing Abdomen: Obese without evidence of distention or tenderness, and remained soft, normal bowel sounds. Extremities: Trace edema, Chronic lymphedema with erythema but no warmth or tenderness, stasis dermatitis with venous stasis ulcers. DISCHARGE DIAGNOSES: UTI SKin and soft tissue infection of the legs Bilateral venous stasis with lymphedema improving , stasis dermatitis , stasis rubor and venous stasis ulcers. Morbid obesity Generalized deconditioning and difficulty in ambulation SECONDARY DIAGNOSIS: Atrial fib (on Eliquis), DLP, NIDDM2, hypertension, Hypothyroidism, CKD3, Chronic anemia, Endometrial CA , Hyperuricemia, Secondary hyperparathyroidism. Plan: discharge today. For rest of the assessemnt please refer to discharge summary. VS,Fishbone, I+O VS, Fishbone, I+O Vital Signs Date Time Temp Pulse Resp B/P (MAP) Pulse Ox O2 Delivery O2 Flow Rate FiO2 12/18/19 06:00 98.0 83 17 152/81 (104) 92 Room Air I&O- Last 24 Hours up to 6 AM 12/18/19 05:59 Intake Total 1080 ml Output Total 1200 ml Balance -120 ml ANA VILLANUEVA MD Dec 18, 2019 12:36
== END 2019-12-18 09:44 | DRG 884 ==
LOC: M ED 18:46 → EDBD 18:46 → M ED INP 23:39 → ENRESERV 23:55 → M MSPAV 12-07 01:32
PROVIDERS: ADMIT Internal Medicine; ATTEND Internal Medicine Nephrology
DX: R54 Age-related physical debility (principal); Z68.42 Body mass index [BMI] 45.0-49.9, adult; N25.81 Secondary hyperparathyroidism of renal origin; L97.909 Non-pressure chronic ulcer of unspecified part of unspecified lower leg with unspecified severity; L97.919 Non-pressure chronic ulcer of unspecified part of right lower leg with unspecified severity; L97.929 Non-pressure chronic ulcer of unspecified part of left lower leg with unspecified severity; N30.90 Cystitis, unspecified without hematuria; M79.661 Pain in right lower leg; E11.65 Type 2 diabetes mellitus with hyperglycemia; N18.3 Chronic kidney disease, stage 3 (moderate); I48.91 Unspecified atrial fibrillation; Z79.01 Long term (current) use of anticoagulants; I12.9 Hypertensive chronic kidney disease with stage 1 through stage 4 chronic kidney disease, or unspecified chronic kidney disease; E78.5 Hyperlipidemia, unspecified; D50.9 Iron deficiency anemia, unspecified; Z85.42 Personal history of malignant neoplasm of other parts of uterus; E03.9 Hypothyroidism, unspecified; R29.6 Repeated falls; M79.662 Pain in left lower leg; D72.829 Elevated white blood cell count, unspecified; E11.22 Type 2 diabetes mellitus with diabetic chronic kidney disease; E66.01 Morbid (severe) obesity due to excess calories; Z79.4 Long term (current) use of insulin; Z79.899 Other long term (current) drug therapy; Z88.5 Allergy status to narcotic agent; Z88.8 Allergy status to other drugs, medicaments and biological substances; Z72.3 Lack of physical exercise; B96.20 Unspecified Escherichia coli [E. coli] as the cause of diseases classified elsewhere; B95.4 Other streptococcus as the cause of diseases classified elsewhere; E79.0 Hyperuricemia without signs of inflammatory arthritis and tophaceous disease; I83.019 Varicose veins of right lower extremity with ulcer of unspecified site; I83.029 Varicose veins of left lower extremity with ulcer of unspecified site; I89.0 Lymphedema, not elsewhere classified